=== PATIENT | male | born 1970 | race Caucasian/White ===

== ENCOUNTER 2018-05-28 19:50 | Inpatient (IN) | END 2018-06-06 20:30 | disposition home or self-care (01) | DRG 488 ==

== ENCOUNTER 2019-03-21 11:51 | Inpatient (IN) | payer OTHER ==
[2019-03-21] VITALS (30 sets, daily range): BP systolic 109–159; BP diastolic 70–98; PULSE 74–91; RESP 10–30; Ht 167.6 cm; Wt 69.0 kg
[~2019-03-21] VITALS: Ht 167.6 cm; Wt 69.0 kg
[~2019-03-21 11:51] MED LIST: INSULIN SC*; Insulin Glargine SC; METF100010 PO; SEVOFLURANE 15 MIN ONE
[2019-03-21] MEDS: DEXTROSE 5%-0.45% NACL 1,000 ML IV SCH ×2 (13:50→22:20)
--- NOTE | 2019-03-21 14:01 | PREAC ---
Date/Time of Note Date/Time of Note DATE: 03/21/19 TIME: 13:59 Anesthesia Eval and Record Evaluation Time Pre-Procedure Interview DATE: 03/21/19 TIME: 13:59 Age 48 Sex male NPO: 8 hrs Preoperative diagnosis RIGHT KNEE REPLACEMENT REVISION Planned procedure REMOVAL OF HARDWARE AND RIGHT TOTAL KNEE REVISION Past Medical History Past Medical History: Includes Cardio: HTN Endo: Diabetes Neuro: Other (HX SYNCOPAL EPISODES) Surgery & Anesthesia Issues No known issue Meds Anticoagulation: No Beta Arturo within 24 hr: No Reason Beta Arturo not given: Pt. not on B-Arturo Active Scripts Metformin Hcl* (Metformin Hcl*) 1,000 Mg Tablet, 1000 MG PO WITH BREAKFAST DINNE for 30 Days, #60 TAB 5 Refills Prov:SAKINA MONROY MD 06/06/18 [Insulin Glargine] 100 UNITS/ML SOLN No Conflict Check, 17 UNITS SC DAILY@2000 for 30 Days, 5 Refills Prov:SAKINA MONROY MD 06/06/18 Reported Medications [Insulin ] No Conflict Check, 20 UNITS SC* BID 05/28/18 Current Medications Cefazolin Sodium 50 ml @ 100 mls/hr PRE-OP ONCE IVPB ; Start 03/21/19 at 14:30; Stop 03/21/19 at 14:59 Dextrose/Sodium Chloride 1,000 ml @ 120 mls/hr Q8H20M IV Last administered on 03/21/19at 13:50; Admin Dose 120 MLS/HR; Start 03/21/19 at 14:00 Meds reviewed: Yes Allergies Coded Allergies: No Known Allergy (Unverified , 03/21/19) Allergies Reviewed: Yes Labs/Studies Labs Reviewed: Reviewed by anesthesiologist test: N/A Studies: ECG, CXR Pre-procedure Exam Airway: Adequate mouth opening, Adequate thyromental dist Mallampati: Mallampati I Teeth: Normal Lung: Normal Heart: Normal ASA Physical Status ASA physical status: 3 Emergency: None Planned Anesthetic General/MAC: LMA Neuraxial: Spinal Planned Pain Management Sub-arachniod narcotics Pre-operative Attestations Prior to commencing anesthesia and surgery, the patient was re-evaluated, there was verification of: *The patient's identity *The results of appropriate recent lab work and preoperative vital signs *The above evaluation not changing prior to induction *Anesthetic plan, risk benefits, alternative and complications discussed with patient/family; questions answered; patient/family understands, accepts and wishes to proceed. CHELSEA PACHECO Mar 21, 2019 14:01
[2019-03-21] MEDS ORDERED: morphine SULFATE/PF (10 MG/10 ML) INJ ONE (14:10)
[2019-03-21] MEDS ORDERED: TRANEXAMIC ACID 1GM/100ML(PMX) 200 ML ONE (14:14)
[2019-03-21] MEDS ORDERED: POLYMYXIN/BACITRACIN 1L IRRIG ONE (14:14)
[2019-03-21] MEDS ORDERED: ROCURONIUM 50 MG INJ ONE (14:14)
[2019-03-21] MEDS ORDERED: PROPOFOL 20 ML ONE (14:14)
[2019-03-21] MEDS ORDERED: LIDOCAINE 2% (SDV) 5 ML INJ ONE (14:14)
[2019-03-21] MEDS ORDERED: FENTAnyl 50 MCG/ML VIAL ONE (14:16)
[2019-03-21] MEDS ORDERED: MIDAZOLAM 1 MG/ML 2 ML INJ ONE (14:27)
[2019-03-21] MEDS ORDERED: CEFAZOLIN 1 GM/NS 50 ML X 1 IVPB ONE (14:30)
--- NOTE | 2019-03-21 14:41 | HPN ---
Date/Time of Note Date/Time of Note DATE: 03/21/19 TIME: 14:40 Interval H&P Admission Note Pt. seen H&P reviewed: No system changes RAISSA DIAZ MD Mar 21, 2019 14:41
--- NOTE | 2019-03-21 14:44 | OPR ---
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
[2019-03-21] MEDS ORDERED: NEOMYC/POLYMYX/BACIT 30 GM OINT ONE (14:54)
[2019-03-21] MEDS ORDERED: POLYMYXIN/BACITRACIN 1L IRRIG IRR ONE (15:10)
[2019-03-21] MEDS ORDERED: DEXAMETHASONE 4 MG/ML 5 ML INJ ONE (16:08)
[2019-03-21] MEDS ORDERED: ONDANSETRON 4 MG INJ ONE (16:09)
[2019-03-21] MEDS ORDERED: CEFAZOLIN 1 GM INJ ONE (16:09)
[2019-03-21] MEDS ORDERED: NEOSTIGMINE 3 MG/3 ML SYRINGE ONE (16:36)
[2019-03-21] MEDS ORDERED: GLYCOPYRROLATE 0.4 MG INJ ONE (16:36)
--- NOTE | 2019-03-21 16:51 | PAC ---
Date/Time of Note Date/Time of Note DATE: 03/21/19 TIME: 16:50 Post-Anesthesia Notes Post-Anesthesia Note Last documented vital signs Vital Signs Date Temp Pulse Resp B/P (MAP) Pulse Ox O2 O2 Flow FiO2 Time Delivery Rate 03/21/19 98.5 81 16 109/70 98 Room Air 1651 (83) Activity: WNL Respiratory function: WNL Cardiovascular function: WNL Mental status: Baseline Pain reasonably controlled: Yes Hydration appropriate: Yes Nausea/Vomiting absent: Yes CHELSEA PACHECO Mar 21, 2019 16:51
[2019-03-21] MEDS ORDERED: MIDAZOLAM 1 MG/ML 2 ML INJ IV PRN (17:00)
[2019-03-21] MEDS ORDERED: hydrALAzine 20 MG INJ IV PRN (17:00)
[2019-03-21] MEDS ORDERED: LABETALOL HCL 20MG INJ IV PRN (17:00)
[2019-03-21] MEDS ORDERED: METOCLOPRAMIDE 10 MG INJ IV PRN (17:00)
[2019-03-21] MEDS ORDERED: MEPERIDINE 25 MG INJ IV PRN (17:00)
[2019-03-21] MEDS ORDERED: ALBUTEROL 0.083% (NEB) 2.5 MG/3 ML AMP HHN PRN (17:00)
[2019-03-21] MEDS ORDERED: HYDROmorphONE 1 MG/5 ML IV SYRINGE IV PRN ×3 (17:00)
[2019-03-21] MEDS ORDERED: DIPHENHYDRAMINE 50 MG INJ IV PRN (17:00)
[2019-03-21] MEDS ORDERED: EPHEDrine 25 MG/5 ML SYG IV PRN (17:00)
[2019-03-21] MEDS ORDERED: FENTAnyl 50 MCG/ML VIAL IV PRN ×3 (17:00)
[2019-03-21] MEDS ORDERED: ONDANSETRON 4 MG INJ IV PRN ×2 (17:00→21:30)
[2019-03-21] MEDS ORDERED: KETOROLAC 30 MG INJ IV PRN (17:00)
[2019-03-21] MEDS ORDERED: HYDROmorphONE 0.5 MG/0.5 ML SYG IV PRN (17:30)
[2019-03-21] MEDS ORDERED: GLUCOSE GEL 15 GRAM TUBE PO PRN ×2 (18:30)
[2019-03-21] MEDS ORDERED: GLUCAGON 1 MG INJ IM PRN (18:30)
[2019-03-21] MEDS ORDERED: DEXTROSE 50% 50 ML SYRINGE IV PRN ×2 (18:30)
[2019-03-21] MEDS ORDERED: GLUCOSE GEL 15 GRAM TUBE BUCCAL PRN (18:30)
[2019-03-21] MEDS: ASPIRIN (EC) 325 MG TAB PO SCH (18:46)
[2019-03-21] MEDS: INSULIN ASPART [NOVOLOG] 3 ML PEN SC SCH ×2 (19:30→21:00)
[2019-03-21] MEDS: SOD CHLORIDE 0.9% 1,000 ML IV SCH (20:13)
[2019-03-21] MEDS: ACCU-CHEK XX SCH (21:00)
[2019-03-21] MEDS: GABAPENTIN 300 MG CAP PO SCH (21:47)
[2019-03-21] MEDS: CEFAZOLIN 1 GM/50 ML (PMX) 50 ML IVPB SCH (21:49)
--- NOTE | 2019-03-21 22:31 | OPR ---
DATE OF OPERATION: 03/21/2019 DIGITAL ADVERTISING ANALYST: Nurse practitioner. ANESTHESIA: General. PREOPERATIVE DIAGNOSIS: Severe osteoarthritis, right knee, status post medial plateau fracture with surgery with open reduction internal fixation and retained hardware. POSTOPERATIVE DIAGNOSIS: Severe osteoarthritis, right knee, status post medial plateau fracture with surgery with open reduction internal fixation and retained hardware. PROCEDURES PERFORMED: 1. Right total knee replacement arthroplasty using Jimenez and Nephew, posterior stabilized component size 6 femur Oxinium size 4 tibia, posterior stabilized, 9 mm liner, 23 mm patellar button. All comp onents cemented with antibiotic-impregnated cement. 2. Removal of hardware over the left medial plateau consisting of a buttress plate with 8 screws. ESTIMATED BLOOD LOSS: 250 mL. TOURNIQUET TIME: 50 minutes. COMPLICATIONS: None. DESCRIPTION OF PROCEDURE: The patient was taken to the operating room and general anesthetic given w ith intubation. Two grams of Kefzol was given for prophylaxis. A gram of tranexamic acid was given intravenously. The patient had a severely comminuted depressed medial tibial plateau fracture which was operated in the past by another surgeon. The x-rays show that the plateau was compressed by at least 1.5 cm with a prominent plate medially with diffuse degenerative changes involving the knee joint in all 3 oj rtments. The plan at this time is to remove the hardware and perform a knee replacement arthroplasty . The patient agreed to the procedure, understanding risks and complications which include but not l imited to loosening, infection, blood clot, neurovascular injury, stiffness, arthritis, and revision surgery. Khan catheter was inserted sterilely. Left lower extremity was prepared with a tourniquet and prepp ed and draped in usual sterile manner. Exsanguinated with an Esmarch bandage, tourniquet inflated to 300 mmHg. The previous incision was utilized, extended proximally. Arthrotomy performed medially. Plate visualized over the medial plateau and removed satisfactorily with all the hardware. No sign of infection. The wound irrigated. The femur was then prepared with intramedullary guide. The fischer lla prepared for a 23 mm button, the tibia cut with the external guide to size 4, and the femur was c ut to size 6. A trial reduction was carried out with a 9 mm liner and satisfactory range of motion n oted with full extension of the knee, flexion of 120 degrees. Knee appears stable. All bone debris and scar tissue were removed. Cement was mixed. The depressed area was compressed w ith additional cement and the component inserted satisfactorily. Stable range of motion was noted. Excess cement removed. The knee was stable in flexion and extension and medial and lateral stressing . A medial Hemovac drain placed into the knee joint. Arthrotomy closed with #2 FiberWire sutures an d #1 Vicryl suture. Subcutaneous layer closed with Vicryl suture. Rebecca applied. Compression ban dage applied. Anesthetic reversed. The patient taken to recovery room in stable condition. Dictated By: RAISSA HAMMOND/NTS Conf#: [id number] DID#: [id number] CC: MICHELLE MADRID MD;*EndCC*
[2019-03-22] MEDS: SOD CHLORIDE 0.9% 1,000 ML IV SCH ×2 (04:37→17:08)
[2019-03-22 05:00] VITALS: BP 115/77; PULSE 91; RESP 18
[2019-03-22] MEDS: CEFAZOLIN 1 GM/50 ML (PMX) 50 ML IVPB SCH ×3 (06:09→21:54)
[2019-03-22] MEDS: DEXTROSE 5%-0.45% NACL 1,000 ML IV SCH (06:40)
[2019-03-22] MEDS: ACCU-CHEK XX SCH ×4 (07:20→21:00)
[2019-03-22 07:34] VITALS: BP 102/57; PULSE 84; RESP 18
[2019-03-22] MEDS: GABAPENTIN 300 MG CAP PO SCH ×3 (08:25→19:37)
[2019-03-22] MEDS: ASPIRIN (EC) 325 MG TAB PO SCH ×2 (08:25→17:08)
[2019-03-22] MEDS: INSULIN ASPART [NOVOLOG] 3 ML PEN SC SCH ×4 (08:28→21:00)
--- NOTE | 2019-03-22 13:44 | HP ---
Date/Time of Note Date/Time of Note DATE: 03/22/19 TIME: 13:42 Assessment/Plan VTE Prophylaxis Risk score (from Ns)>0 risk: 3 SCD applied (from Ns): Yes Pharmacological prophylaxis: NA/contraindicated Pharm contraindication: surgical contra Lines/Catheters IV [facility] (from [facility]): Peripheral IV Urinary Cath still in place: Yes Reason Cath still needed: urinary retention Assessment/Plan Hospital Course 1. s/p left knee arthroplasty and metal hardware removal after ORIF of the medial aspect of the proximal tibial metaphysis 2. DM type I . Incomplete data. Pt is taking Metformin. With type I diabetes it is useless. 3. homelessness 4. dysuria. Previous lab work is positive for UTI. Pt reported weakness while urinating. Poss. BPH. 6. Normocytic normochromic anemia Assessment/Plan -prostate US -irone profile -PT /OT -c-peptide tomorrow -dc pending -hypoglycemic control -social service for homelessness -dc lina . Result Diagram: 03/22/19 1019 Results 24hrs Laboratory Tests Test 03/21/19 16:50 03/21/19 21:49 03/21/19 22:16 03/22/19 07:38 Bedside Glucose 190 157 Prothrombin Time 13.8 Prothrombin Time 1.1 Ratio INR International 1.05 Normalized Ratio Lab Scanned Report REFERENCE LAB Test 03/22/19 08:05 03/22/19 10:19 03/22/19 12:27 Bedside Glucose 201 260 H Hemoglobin 9.3 L Hematocrit 28.9 L HPI/ROS Admit Date/Time Admit Date/Time Mar 21, 2019 at 11:51 Hx of Present Illness this 48 y.o male with history of DM type I, hypertension and previous fracture of right tibia had hardware removal and right knee arthroplasty. He is first day after surgery with physical therapy. Pt is homeless. He said he also has difficu lties urinating. Pt does not know about his medical problems much, unable to provide a data. ROS Respiratory: no complaints Genitourinary: dysuria Musculoskeletal: restricted range of motion (right knee), swelling (right knee) PMH/Family/Social Past Medical History Medical History: diabetes, hypertension Medications Current Medications Dextrose/Sodium Chloride 1,000 ml @ 120 mls/hr Q8H20M IV Last administered on 03/21/19at 13:50; Admin Dose 120 MLS/HR; Start 03/21/19 at 14:00 Cefazolin Sodium 50 ml @ 100 mls/hr Q8 IVPB Last administered on 03/22/19 13:14; Admin Dose 100 MLS/HR; Start 03/21/19 at 22:00 Aspirin (Ecotrin) 325 mg BID WITH MEALS PO Last administered on 03/22/19 08:25; Admin Dose 325 MG; Start 03/21/19 at 18:00 Hydromorphone HCl (Dilaudid) 0.5 mg Q2H PRN IV SEVERE PAIN LEVEL 7-10; Start 03/21/19 at 17:30 Acetaminophen/ Hydrocodone Bitart ([place] (10/325)) 1 tab Q6H PRN PO MODERATE PAIN LEVEL 4-6; Start 03/21/19 at 17:30 Gabapentin (Neurontin) 300 mg TID PO Last administered on 03/22/19 13:13; Admin Dose 300 MG; Start 03/21/19 at 21:00 Sodium Chloride 1,000 ml @ 90 mls/hr Q11H7M IV Last administered on 03/21/19 20:13; Admin Dose 90 MLS/HR; Start 03/21/19 at 17:30 Diagnostic Test (Pha) (Accu-Chek) 1 ea AC MEALS AND BEDTIME XX Last administered on 03/22/19 11:10; Admin Dose 1 EA; Start 03/21/19 at 21:00 Insulin Aspart (Novolog Insulin Pen) NOVOLOG *MILD* ALGORITHM WITH MEALS BEDTIME SC Last administered on 03/22/19 12:39; Admin Dose 4 UNIT; Start 03/21/19 at 18:00 Miscellaneous Information 1 ea NOTE XX ; Start 03/21/19 at 18:30 Glucose (Glutose) 15 gm Q15M PRN PO DECREASED GLUCOSE; Start 03/21/19 at 18:30 Glucose (Glutose) 22.5 gm Q15M PRN PO DECREASED GLUCOSE; Start 03/21/19 at 18:30 Dextrose (D50w Syringe) 25 ml Q15M PRN IV DECREASED GLUCOSE; Start 03/21/19 at 18:30 Dextrose (D50w Syringe) 50 ml Q15M PRN IV DECREASED GLUCOSE; Start 03/21/19 at 18:30 Glucagon (Glucagen) 1 mg Q15M PRN IM DECREASED GLUCOSE; Start 03/21/19 at 18:30 Glucose (Glutose) 15 gm Q15M PRN BUCCAL DECREASED GLUCOSE; Start 03/21/19 at 18:30 Ondansetron HCl (Zofran Inj) 4 mg Q6H PRN IV NAUSEA AND/OR VOMITING Last ad ministered on 03/21/19at 22:03; Admin Dose 4 MG; Start 03/21/19 at 21:30 Coded Allergies: No Known Allergy (Unverified , 03/21/19) Past Surgical History Past Surgical Hx: other (ORIF 2018) Family History Significant Family History: no pertinent family hx Social History Alcohol Use: none Smoking Status: Never smoker Drug Use: none Exam/Review of Systems Vital Signs Vitals Vital Signs Date Temp Pulse Resp B/P (MAP) Pulse Ox O2 O2 Flow FiO2 Time Delivery Rate 03/22/19 97.2 84 18 102/57 94 07:34 (72) 03/21/19 Room Air 21:00 Intake and Output 03/21/19 03/21/19 03/22/19 1515:00 23:00 07:00 IntakeIntake Total 2000 ml 410 ml 950 ml OutputOutput Total 420 ml 970 ml BalanceBalance 2000 ml -10 ml -20 ml Exam Constitutional: alert, oriented Head: normocephalic Eyes: nl conjunctiva Respiratory: clear to auscultation Cardiovascular: regular rate and rhythm Gastrointestinal: soft Genitourinary - Male: other (mills) Musculoskeletal: swelling (right knee) GRIFFIN NAVARRETE Mar 22, 2019 13:43
[2019-03-22 15:08] VITALS: BP 129/76; PULSE 96; RESP 18
[2019-03-22 19:35] VITALS: BP 116/58; PULSE 112; RESP 18
[2019-03-22] MEDS: HYDROCODONE/APAP (10/325) TAB PO PRN (19:37)
[2019-03-22 20:30] VITALS: BP 118/63; PULSE 92
[2019-03-23] MEDS: HYDROCODONE/APAP (10/325) TAB PO PRN ×2 (02:02→08:27)
[2019-03-23 02:30] VITALS: BP_SYST 121; BP_SYST 94; BP_DIAS 53; BP_DIAS 68; PULSE 86; PULSE 98; RESP 20
[2019-03-23] MEDS: CEFAZOLIN 1 GM/50 ML (PMX) 50 ML IVPB SCH ×3 (05:35→21:43)
[2019-03-23 08:02] VITALS: BP_SYST 121; BP_SYST 149; BP_DIAS 57; BP_DIAS 72; PULSE 94; RESP 20
[2019-03-23] MEDS: AMLODIPINE 5 MG TAB PO SCH (08:29)
[2019-03-23] MEDS: ACCU-CHEK XX SCH ×4 (08:30→21:00)
[2019-03-23] MEDS: GABAPENTIN 300 MG CAP PO SCH ×3 (08:30→21:43)
[2019-03-23] MEDS: INSULIN ASPART [NOVOLOG] 3 ML PEN SC SCH ×4 (08:34→21:48)
[2019-03-23] MEDS: ASPIRIN (EC) 325 MG TAB PO SCH ×2 (10:02→17:24)
[2019-03-23] MEDS ORDERED: FINASTERIDE 5 MG TAB PO SCH (11:00)
[2019-03-23] MEDS: CALCIUM CARBONATE 1.25 GM TAB PO SCH ×2 (11:50→21:43)
[2019-03-23] MEDS: LEVOFLOXACIN 500MG/D5W (PMX) 100 ML IVPB SCH (11:50)
--- NOTE | 2019-03-23 12:42 | PN ---
Date/Time of Note Date/Time of Note DATE: 03/23/19 TIME: 12:37 Assessment/Plan VTE Prophylaxis Risk score (from Ns)>0 risk: 4 SCD applied (from [facility]): Yes SCD contraindicated: other Pharmacological prophylaxis: NA/contraindicated Pharm contraindication: surgical contra Lines/Catheters IV C[facility]ter Type ([facility] Peripheral IV Urinary Cath still in place: No Assessment/Plan Hospital Course 1. s/p left knee arthroplasty and metal hardware removal after ORIF of the medial aspect of the proximal tibial metaphysis 2. DM type I or II? Incomplete data. Pt was taking Metformin but said it is not helping him. With type I diabetes it is useless. Per previous record pt has DM type I. C -peptide is pending. It is uncontrolled 3. homelessness. Pt has friend and address Unclear how Physical therapy will be given. Also pt has a wound on right knee 4. UTI with dysuria. Previous lab work is positive for UTI. Pt reported weakness while urinating. 6. Normocytic normochromic iron def.anemia 7. Proteinuria, more likely to 2.2 UTI 8. Hypocalcemia Assessment/Plan -prostate US is normal -iron profile is low -calcium tabs BID for Hypocalcemia -start Levaquin for UTI. 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 Consider PT -hypoglycemic control -social service for homelessness Result Diagram: 03/23/19 0424 03/23/194 Results 24hrs Laboratory Tests Test 03/22/19 17:10 03/22/19 18:23 03/22/19 20:55 03/23/19 01:57 Urine Color JEFF Urine Clarity TURBID A Urine pH 5.0 Urine Specific [place] 1.020 Urine Ketones NEGATIVE Urine Nitrite NEGATIVE Urine Bilirubin NEGATIVE Urine Urobilinogen NEGATIVE Urine Leukocyte Esterase 3+ H Urine Microscopic RBC 49 H Urine Microscopic WBC > 182 H Urine Bacteria FEW A Urine Hemoglobin 2+ H Urine Glucose 2+ H Urine Total Protein 2+ H Bedside Glucose 380 H 324 H 197 Test 03/23/19 04:24 03/23/19 08:26 White Blood Count 5.3 # Red Blood Count 2.79 L Hemoglobin 8.0 L Hematocrit 25.1 L Mean Corpuscular Volume 90.0 Mean Corpuscular 28.7 L Hemoglobin Mean Corpuscular 31.9 L Hemoglobin Concent Red Cell Distribution 13.3 Width Platelet Count 167 # Mean Platelet Volume 10.3 Immature Granulocytes % 0.400 Neutrophils % 59.6 Lymphocytes % 24.3 Monocytes % 12.3 H Eosinophils % 2.3 Basophils % 1.1 Nucleated Red Blood 0.0 Cells % Immature Granulocytes # 0.020 Neutrophils # 3.1 Lymphocytes # 1.3 Monocytes # 0.7 Eosinophils # 0.1 Basophils # 0.1 Nucleated Red Blood 0.0 Cells # Sodium Level 134 L Potassium Level 4.5 Chloride Level 105 Carbon Dioxide Level 26 Anion Gap 3 L Blood Urea Nitrogen 28 H Creatinine 1.15 Est Glomerular Filtrat > 60 Rate mL/min Glucose Level 205 Hemoglobin A1c 9.9 H Calcium Level 7.7 L Iron Level 24 L Total Iron Binding 237 L Capacity Percent Iron Saturation 10 L Total Bilirubin 0.5 Direct Bilirubin 0.00 Indirect Bilirubin 0.5 Aspartate Amino 27 Transf (AST/SGOT) Alanine 26 Aminotransferase (ALT/SG PT) Alkaline Phosphatase 83 Total Protein 5.2 L Albumin 2.7 L Globulin 2.50 Albumin/Globulin Ratio 1.08 Prostate Specific 2.9 Antigen Bedside Glucose 190 Subjective 24 Hr Interval Summary Free Text/Dictation erectile dysfunction. Respiratory: no complaints Musculoskeletal: restricted range of motion (right knee) Skin: skin lesions (surgical) Exam/Review of Systems Exam Vitals Vital Signs Date Temp Pulse Resp B/P (MAP) Pulse Ox O2 O2 Flow FiO2 Time Delivery Rate 03/23/19 99.0 94 20 121/57 95 Room Air 08:02 (78) Intake and Output 03/22/19 03/22/19 03/23/19 1515:00 23:00 07:00 IntakeIntake Total 50 ml 770 ml 1020 ml OutputOutput Total 420 ml 220 ml 1020 ml BalanceBalance -370 ml 550 ml 0 ml Constitutional: alert, oriented Neck: supple Respiratory: clear to auscultation Cardiovascular: regular rate and rhythm Gastrointestinal: soft Genitourinary - Male: CVA tenderness; No nl penis, No nl scrotum, No discharge, No other Extremities: edema (right knee with surgical wound) Results Results 24hrs Laboratory Tests Test 03/22/19 17:10 03/22/19 18:23 03/22/19 20:55 03/23/19 01:57 Urine Color JEFF Urine Clarity TURBID A Urine pH 5.0 Urine Specific [place] 1.020 Urine Ketones NEGATIVE Urine Nitrite NEGATIVE Urine Bilirubin NEGATIVE Urine Urobilinogen NEGATIVE Urine Leukocyte Esterase 3+ H Urine Microscopic RBC 49 H Urine Microscopic WBC > 182 H Urine Bacteria FEW A Urine Hemoglobin 2+ H Urine Glucose 2+ H Urine Total Protein 2+ H Bedside Glucose 380 H 324 H 197 Test 03/23/19 04:24 03/23/19 08:26 White Blood Count 5.3 # Red Blood Count 2.79 L Hemoglobin 8.0 L Hematocrit 25.1 L Mean Corpuscular Volume 90.0 Mean Corpuscular 28.7 L Hemoglobin Mean Corpuscular 31.9 L Hemoglobin Concent Red Cell Distribution 13.3 Width Platelet Count 167 # Mean Platelet Volume 10.3 Immature Granulocytes % 0.400 Neutrophils % 59.6 Lymphocytes % 24.3 Monocytes % 12.3 H Eosinophils % 2.3 Basophils % 1.1 Nucleated Red Blood 0.0 Cells % Immature Granulocytes # 0.020 Neutrophils # 3.1 Lymphocytes # 1.3 Monocytes # 0.7 Eosinophils # 0.1 Basophils # 0.1 Nucleated Red Blood 0.0 Cells # Sodium Level 134 L Potassium Level 4.5 Chloride Level 105 Carbon Dioxide Level 26 Anion Gap 3 L Blood Urea Nitrogen 28 H Creatinine 1.15 Est Glomerular Filtrat > 60 Rate mL/min Glucose Level 205 Hemoglobin A1c 9.9 H Calcium Level 7.7 L Iron Level 24 L Total Iron Binding 237 L Capacity Percent Iron Saturation 10 L Total Bilirubin 0.5 Direct Bilirubin 0.00 Indirect Bilirubin 0.5 Aspartate Amino 27 Transf (AST/SGOT) Alanine 26 Aminotransferase (ALT/SG PT) Alkaline Phosphatase 83 Total Protein 5.2 L Albumin 2.7 L Globulin 2.50 Albumin/Globulin Ratio 1.08 Prostate Specific 2.9 Antigen Bedside Glucose 190 Medications Medication Current Medications Cefazolin Sodium 50 ml @ 100 mls/hr Q8 IVPB Last administered on 03/23/19at 05:35; Admin Dose 100 MLS/HR; Start 03/21/19 at 22:00 Aspirin (Ecotrin) 325 mg BID WITH MEALS PO Last administered on 03/23/19at 10:02; Admin Dose 325 MG; Start 03/21/19 at 18:00 Hydromorphone HCl (Dilaudid) 0.5 mg Q2H PRN IV SEVERE PAIN LEVEL 7-10; Start 03/21/19 at 17:30 Acetaminophen/ Hydrocodone Bitart ([place] ()) 1 tab Q6H PRN PO MODERATE PAIN LEVEL 4-6 Last administered on 03/23/19 08:27; Admin Dose 1 TAB; Start 03/21/19 at 17:30 Gabapentin (Neurontin) 300 mg TID PO Last administered on 03/23/19 08:30; Admin Dose 300 MG; Start 03/21/19 at 21:00 Sodium Chloride 1,000 ml @ 30 mls/hr Q24H IV Last administered on 03/22/19 17:08; Admin Dose 30 MLS/HR; Start 03/21/19 at 17:30 Diagnostic Test (Pha) (Accu-Chek) 1 ea AC MEALS AND BEDTIME XX Last administered on 03/22/19 17:25; Admin Dose 1 EA; Start 03/21/19 at 21:00 Insulin Aspart (Novolog Insulin Pen) NOVOLOG *MILD* ALGORITHM WITH MEALS BEDTIME SC Last administered on 03/23/19 08:34; Admin Dose 2 UNIT; Start 03/21/19 at 18:00 Miscellaneous Information 1 ea NOTE XX ; Start 03/21/19 at 18:30 Glucose (Glutose) 15 gm Q15M PRN PO DECREASED GLUCOSE; Start 03/21/19 at 18:30 Glucose (Glutose) 22.5 gm Q15M PRN PO DECREASED GLUCOSE; Start 03/21/19 at 18:30 Dextrose (D50w Syringe) 25 ml Q15M PRN IV DECREASED GLUCOSE; Start 03/21/19 at 18:30 Dextrose (D50w Syringe) 50 ml Q15M PRN IV DECREASED GLUCOSE; Start 03/21/19 at 18:30 Glucagon (Glucagen) 1 mg Q15M PRN IM DECREASED GLUCOSE; Start 03/21/19 at 18:30 Glucose (Glutose) 15 gm Q15M PRN BUCCAL DECREASED GLUCOSE; Start 03/21/19 at 18:30 Ondansetron HCl (Zofran Inj) 4 mg Q6H PRN IV NAUSEA AND/OR VOMITING Last administered on 03/21/19 22:03; Admin Dose 4 MG; Start 03/21/19 at 21:30 Amlodipine Besylate (Norvasc) 5 mg DAILY PO Last administered on 6/9/19at 08:29; Admin Dose 5 MG; Start 03/23/19 at 09:00 Insulin Aspart (Novolog Insulin Pen) 7 unit AC MEALS PRN SC BLOOD SUGAR IS ABOVE 250; Start 03/23/19 at 07:20 Ferric Sodium Gluconate Complex 125 mg/Sodium Chloride 100 ml @ 100 mls/hr DAILY@1300 IVPB ; Start 03/23/19 at 13:00; Stop 03/25/19 at 13:59 Finasteride (Proscar) 5 mg DAILY PO Last administered on 03/23/19at 11:50; Admin Dose 5 MG; Start 03/23/19 at 11:00 Levofloxacin/ Dextrose 100 ml @ 100 mls/hr Q24H IVPB Last administered on 03/23/19 11:50; Admin Dose 100 MLS/HR; Start 03/23/19 at 11:00 Calcium Carbonate ([place] Calcium) 1.25 gm BID PO Last administered on 03/23/19 11:50; Admin Dose 1.25 GM; Start 03/23/19 at 11:00 GRIFFIN NAVARRETE Mar 23, 2019 12:42
[2019-03-23] MEDS: INSULIN ASPART [NOVOLOG] 3 ML PEN SC PRN (13:09)
[2019-03-23] MEDS: SOD FERRIC GLUC COMPLX 125 MG in SOD CHLORIDE 0.9% 100 ML IVPB SCH (13:10)
[2019-03-23 15:29] VITALS: BP 103/55; PULSE 97; RESP 20
[2019-03-23 19:55] VITALS: BP 119/64; PULSE 118; RESP 18
[2019-03-23] MEDS: INSULIN GLARGINE [LANTus] (100 UNITS/ML) SYG SC SCH (21:49)
[2019-03-23 22:00] VITALS: BP 137/69; PULSE 117
[2019-03-23] MEDS ORDERED: CEFTRIAXONE 1 GM/50 ML (PMX) 50 ML IVPB SCH (23:00)
[2019-03-23] MEDS: ACETAMINOPHEN 325 MG TAB PO PRN (23:21)
[2019-03-24] MEDS: SOD CHLORIDE 0.9% 1,000 ML IV SCH (02:14)
[2019-03-24 02:41] VITALS: BP 121/69; PULSE 99; RESP 18
[2019-03-24] MEDS: ACETAMINOPHEN 325 MG TAB PO PRN (05:43)
[2019-03-24] MEDS: CEFAZOLIN 1 GM/50 ML (PMX) 50 ML IVPB SCH (05:46)
[2019-03-24 07:27] VITALS: BP 101/64; PULSE 82; RESP 18
[2019-03-24] MEDS: ACCU-CHEK XX SCH ×4 (08:20→21:00)
[2019-03-24] MEDS: CALCIUM CARBONATE 1.25 GM TAB PO SCH ×2 (08:33→20:54)
[2019-03-24] MEDS: GABAPENTIN 300 MG CAP PO SCH ×3 (08:34→20:54)
[2019-03-24] MEDS: AMLODIPINE 5 MG TAB PO SCH (08:34)
[2019-03-24] MEDS: ASPIRIN (EC) 325 MG TAB PO SCH (08:34)
[2019-03-24] MEDS: INSULIN ASPART [NOVOLOG] 3 ML PEN SC SCH ×4 (08:37→21:17)
[2019-03-24] MEDS: LEVOFLOXACIN 500MG/D5W (PMX) 100 ML IVPB SCH (11:07)
--- NOTE | 2019-03-24 12:21 | PN ---
Date/Time of Note Date/Time of Note DATE: 03/24/19 TIME: 12:21 Assessment/Plan VTE Prophylaxis Risk score (from Ns)>0 risk: 7 SCD applied (from Ns): Yes Pharmacological prophylaxis: NA/contraindicated Pharm contraindication: low risk/ambulating Lines/Catheters IV Catheter Type (from Nrs): Peripheral IV Urinary Cath still in place: No Assessment/Plan Assessment/Plan 1. s/p left knee arthroplasty and metal hardware removal after ORIF of the medial aspect of the proximal tibial metaphysis 2. DM type I or II? Incomplete data. Pt was taking Metformin but said it is not helping him. With type I diabetes it is useless. Per previous record pt has DM type I. C -peptide is pending. It is uncontrolled 3. homelessness. Pt has friend and address Unclear how Physical therapy will be given. Also pt has a wound on right knee 4. UTI with dysuria. Previous lab work is positive for UTI. Pt reported weakness while urinating. 6. Normocytic normochromic iron def.anemia 7. Proteinuria, more likely to 2.2 UTI 8. Hypocalcemia 9 Anemia with acute blood loss?? Assessment/Plan - cw levaquin -We will check with Ortho if it is okay to continue with aspirin and anemia -pain contol -Monitor hemoglobin, on ASA 325 BID -SNIF vs ARU - CW iv Fe -hypoglycemic control -social service for homelessness Result Diagram: 03/24/19 0432 03/24/19 0432 Results 24hrs Laboratory Tests Test 03/23/19 13:05 03/23/19 17:22 03/23/19 21:41 03/24/19 04:32 Bedside Glucose 267 H 107 186 White Blood Count 5.3 Red Blood Count 2.53 L Hemoglobin 7.2 L Hematocrit 22.5 L Mean Corpuscular 88.9 Volume Mean Corpuscular 28.5 L Hemoglobin Mean Corpuscular 32.0 Hemoglobin Concent Red Cell Distribution 13.5 Width Platelet Count 159 Mean Platelet Volume 10.5 H Immature Granulocytes 0.400 % Neutrophils % 53.4 Lymphocytes % 30.7 Monocytes % 12.1 H Eosinophils % 1.9 Basophils % 1.5 Nucleated Red Blood 0.0 Cells % Immature Granulocytes 0.020 # Neutrophils # 2.8 Lymphocytes # 1.6 Monocytes # 0.6 Eosinophils # 0.1 Basophils # 0.1 Nucleated Red Blood 0.0 Cells # Sodium Level 135 Potassium Level 4.2 Chloride Level 105 Carbon Dioxide Level 25 Anion Gap 5 Blood Urea Nitrogen 30 H Creatinine 1.20 Est Glomerular Filtrat > 60 Rate mL/min Glucose Level 202 Calcium Level 8.0 L Test 03/24/19 08:27 Bedside Glucose 172 Subjective 24 Hr Interval Summary Free Text/Dictation he was ambulating with physical therapy. Hemoglobin 7.2 today Exam/Review of Systems Exam Vitals Vital Signs Date Temp Pulse Resp B/P (MAP) Pulse Ox O2 O2 Flow FiO2 Time Delivery Rate 03/24/19 98.3 82 18 101/64 99 Room Air 07:27 (76) Intake and Output 03/23/19 03/23/19 03/24/19 1515:00 23:00 07:00 IntakeIntake Total 1050 ml 710 ml 950 ml OutputOutput Total 950 ml 200 ml 400 ml BalanceBalance 100 ml 510 ml 550 ml Exam Constitutional: alert, oriented Neck: supple Respiratory: clear to auscultation Cardiovascular: regular rate and rhythm Gastrointestinal: soft Genitourinary - Male: CVA tenderness; No nl penis, No nl scrotum, No discharge, No other Extremities: edema (right knee with surgical wound) Results Results 24hrs Laboratory Tests Test 03/23/19 13:05 03/23/19 17:22 03/23/19 21:41 03/24/19 04:32 Bedside Glucose 267 H 107 186 White Blood Count 5.3 Red Blood Count 2.53 L Hemoglobin 7.2 L Hematocrit 22.5 L Mean Corpuscular 88.9 Volume Mean Corpuscular 28.5 L Hemoglobin Mean Corpuscular 32.0 Hemoglobin Concent Red Cell Distribution 13.5 Width Platelet Count 159 Mean Platelet Volume 10.5 H Immature Granulocytes 0.400 % Neutrophils % 53.4 Lymphocytes % 30.7 Monocytes % 12.1 H Eosinophils % 1.9 Basophils % 1.5 Nucleated Red Blood 0.0 Cells % Immature Granulocytes 0.020 # Neutrophils # 2.8 Lymphocytes # 1.6 Monocytes # 0.6 Eosinophils # 0.1 Basophils # 0.1 Nucleated Red Blood 0.0 Cells # Sodium Level 135 Potassium Level 4.2 Chloride Level 105 Carbon Dioxide Level 25 Anion Gap 5 Blood Urea Nitrogen 30 H Creatinine 1.20 Est Glomerular Filtrat > 60 Rate mL/min Glucose Level 202 Calcium Level 8.0 L Test 03/24/19 08:27 Bedside Glucose 172 Medications Medication Current Medications Cefazolin Sodium 50 ml @ 100 mls/hr Q8 IVPB Last administered on 03/24/19 05:46; Admin Dose 100 MLS/HR; Start 03/21/19 at 22:00 Aspirin (Ecotrin) 325 mg BID WITH MEALS PO Last administered on 03/24/19 08:34; Admin Dose 325 MG; Start 03/21/19 at 18:00 Hydromorphone HCl (Dilaudid) 0.5 mg Q2H PRN IV SEVERE PAIN LEVEL 7-10; Start 03/21/19 at 17:30 Acetaminophen/ Hydrocodone Bitart ([place] (10)) 1 tab Q6H PRN PO MODERATE PAIN LEVEL 4-6 Last administered on 03/23/19 08:27; Admin Dose 1 TAB; Start 03/21/19 at 17:30 Gabapentin (Neurontin) 300 mg TID PO Last administered on 03/24/19 08:34; Admin Dose 300 MG; Start 03/21/19 at 21:00 Sodium Chloride 1,000 ml @ 30 mls/hr Q24H IV Last administered on 03/24/19 02:14; Admin Dose 30 MLS/HR; Start 03/21/19 at 17:30 Diagnostic Test (Pha) (Accu-Chek) 1 ea AC MEALS AND BEDTIME XX Last adminis tered on 03/22/19 17:25; Admin Dose 1 EA; Start 03/21/19 at 21:00 Insulin Aspart (Novolog Insulin Pen) NOVOLOG *MILD* ALGORITHM WITH MEALS BEDTIME SC Last administered on 03/24/19 08:37; Admin Dose 1 UNIT; Start 03/21/19 at 18:00 Miscellaneous Information 1 ea NOTE XX ; Start 03/21/19 at 18:30 Glucose (Glutose) 15 gm Q15M PRN PO DECREASED GLUCOSE; Start 03/21/19 at 18:30 Glucose (Glutose) 22.5 gm Q15M PRN PO DECREASED GLUCOSE; Start 03/21/19 at 18:30 Dextrose (D50w Syringe) 25 ml Q15M PRN IV DECREASED GLUCOSE; Start 03/21/19 at 18:30 Dextrose (D50w Syringe) 50 ml Q15M PRN IV DECREASED GLUCOSE; Start 03/21/19 at 18:30 Glucagon (Glucagen) 1 mg Q15M PRN IM DECREASED GLUCOSE; Start 03/21/19 at 18:30 Glucose (Glutose) 15 gm Q15M PRN BUCCAL DECREASED GLUCOSE; Start 03/21/19 at 18:30 Ondansetron HCl (Zofran Inj) 4 mg Q6H PRN IV NAUSEA AND/OR VOMITING Last administered on 03/21/19 22:03; Admin Dose 4 MG; Start 03/21/19 at 21:30 Amlodipine Besylate (Norvasc) 5 mg DAILY PO Last administered on 03/24/19 08:34; Admin Dose 5 MG; Start 03/23/19 at 09:00 Insulin Aspart (Novolog Insulin Pen) 7 unit AC MEALS PRN SC BLOOD SUGAR IS ABOVE 250 Last administered on 03/23/19 13:09; Admin Dose 7 UNIT; Start 03/23/19 at 07:20 Ferric Sodium Gluconate Complex 125 mg/Sodium Chloride 100 ml @ 100 mls/hr DA EDNA@1300 IVPB Last administered on 03/23/19 13:10; Admin Dose 100 MLS/HR; Start 03/23/19 at 13:00; Stop 03/25/19 at 13:59 Levofloxacin/ Dextrose 100 ml @ 100 mls/hr Q24H IVPB Last administered on 11:07; Admin Dose 100 MLS/HR; Start 03/23/19 at 11:00 Calcium Carbonate (Oyster Shell Calcium) 1.25 gm BID PO Last administered on 03/24/19 08:33; Admin Dose 1.25 GM; Start 03/23/19 at 11:00 Insulin Glargine (Lantus) 8 units QHS SC Last administered on 03/23/19 21:49; Admin Dose 8 UNITS; Start 03/23/19 at 21:00 Acetaminophen (Tylenol Tab) 650 mg Q6H PRN PO MILD PAIN(1-3)OR ELEVATED TEMP L ast administered on 03/24/19 05:43; Admin Dose 650 MG; Start 03/23/19 at 22:20 ALCIRA CORDON MD Mar 24, 2019 12:21
[2019-03-24] MEDS: SOD FERRIC GLUC COMPLX 125 MG in SOD CHLORIDE 0.9% 100 ML IVPB SCH (13:00)
[2019-03-24] MEDS: INSULIN ASPART [NOVOLOG] 3 ML PEN SC PRN (13:03)
[2019-03-24 15:14] VITALS: BP 95/52; PULSE 86
[2019-03-24 19:50] VITALS: BP 129/80; PULSE 96; RESP 18
[2019-03-24] MEDS: INSULIN GLARGINE [LANTus] (100 UNITS/ML) SYG SC SCH (20:57)
[2019-03-25 02:07] VITALS: BP 106/59; PULSE 92; RESP 18
[2019-03-25] MEDS: ACETAMINOPHEN 325 MG TAB PO PRN (04:58)
[2019-03-25] MEDS: ACCU-CHEK XX SCH ×4 (07:20→21:15)
[2019-03-25 08:36] VITALS: BP 111/60; PULSE 79; RESP 18
[2019-03-25] MEDS: AMLODIPINE 5 MG TAB PO SCH (08:45)
[2019-03-25] MEDS: ASPIRIN (EC) 325 MG TAB PO SCH (08:46)
[2019-03-25] MEDS: CALCIUM CARBONATE 1.25 GM TAB PO SCH ×2 (08:46→21:15)
[2019-03-25] MEDS: GABAPENTIN 300 MG CAP PO SCH ×3 (08:46→21:15)
[2019-03-25] MEDS: INSULIN ASPART [NOVOLOG] 3 ML PEN SC SCH ×5 (08:48→21:00)
[2019-03-25] MEDS: LEVOFLOXACIN 500MG/D5W (PMX) 100 ML IVPB SCH (11:25)
[2019-03-25] MEDS: INSULIN ASPART [NOVOLOG] 3 ML PEN SC PRN (12:54)
[2019-03-25] MEDS: SOD FERRIC GLUC COMPLX 125 MG in SOD CHLORIDE 0.9% 100 ML IVPB SCH (12:55)
[2019-03-25 15:33] VITALS: BP 103/60; PULSE 83; RESP 18
--- NOTE | 2019-03-25 15:54 | PN ---
Date/Time of Note Date/Time of Note DATE: 03/25/19 TIME: 15:51 Assessment/Plan VTE Prophylaxis Risk score (from Ns)>0 risk: 6 SCD applied (from Nsg): Yes Pharmacological prophylaxis: NA/contraindicated Pharm contraindication: low risk/ambulating Lines/Catheters IV Catheter Type (from Nrsg): Saline Lock Urinary Cath still in place: No Assessment/Plan Assessment/Plan ssessment/Plan 1. s/p left knee arthroplasty and metal hardware removal after ORIF of the media l aspect of the proximal tibial metaphysis 2. DM type I or II? Incomplete data. Pt was taking Metformin but said it is not helping him. With type I diabetes it is useless. Per previous record pt has DM type I. C -peptide is pending. It is uncontrolled 3. homelessness. Pt has friend and address Unclear how Physical therapy will be given. Also pt has a wound on right knee 4. UTI with dysuria. Previous lab work is positive for UTI. Pt reported weakness while urinating. 6. Normocytic normochromic iron def.anemia 7. Proteinuria, more likely to 2.2 UTI 8. Hypocalcemia 9 Anemia with acute blood loss?? 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 SNIF> spoke to stephenie Gutierrez medically cleared Result Diagram: 03/25/19 0428 03/24/19 0432 Results 24hrs Laboratory Tests Test 03/24/19 17:41 03/24/19 20:50 03/25/19 04:28 03/25/19 08:43 Bedside Glucose 219 334 H 224 H White Blood Count 4.6 L Red Blood Count 2.52 L Hemoglobin 7.3 L Hematocrit 22.6 L Mean Corpuscular 89.7 Volume Mean Corpuscular 29.0 Hemoglobin Mean Corpuscular 32.3 Hemoglobin Concent Red Cell 13.5 Distribution Width Platelet Count 176 Mean Platelet Volume 10.4 Immature 0.400 Granulocytes % Neutrophils % 58.8 Lymphocytes % 25.2 Monocytes % 11.7 H Eosinophils % 3.0 Basophils % 0.9 Nucleated Red Blood 0.0 Cells % Immature 0.020 Granulocytes # Neutrophils # 2.7 Lymphocytes # 1.2 Monocytes # 0.5 Eosinophils # 0.1 Basophils # 0.0 Nucleated Red Blood 0.0 Cells # Test 03/25/19 12:46 Bedside Glucose 319 H Subjective 24 Hr Interval Summary Free Text/Dictation Hemoglobin 7.3 today. 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 Exam/Review of Systems Exam Vitals Vital Signs Date Temp Pulse Resp B/P (MAP) Pulse Ox O2 O2 Flow FiO2 Time Delivery Rate 03/25/19 98.9 79 18 111/60 98 Room Air 08:36 (77) Intake and Output 03/24/19 03/24/19 03/25/19 1515:00 23:00 07:00 IntakeIntake Total 400 ml 2120 ml 400 ml OutputOutput Total 1300 ml 500 ml BalanceBalance 400 ml 820 ml -100 ml Exam Constitutional: alert, oriented Neck: supple Respiratory: clear to auscultation Cardiovascular: regular rate and rhythm Gastrointestinal: soft Genitourinary - Male: CVA tenderness; No nl penis, No nl scrotum, No discharge, No other Extremities: edema (right knee with surgical wound) Results Results 24hrs Laboratory Tests Test 03/24/19 17:41 03/24/19 20:50 03/25/19 04:28 03/25/19 08:43 Bedside Glucose 219 334 H 224 H White Blood Count 4.6 L Red Blood Count 2.52 L Hemoglobin 7.3 L Hematocrit 22.6 L Mean Corpuscular 89.7 Volume Mean Corpuscular 29.0 Hemoglobin Mean Corpuscular 32.3 Hemoglobin Concent Red Cell 13.5 Distribution Width Platelet Count 176 Mean Platelet Volume 10.4 Immature 0.400 Granulocytes % Neutrophils % 58.8 Lymphocytes % 25.2 Monocytes % 11.7 H Eosinophils % 3.0 Basophils % 0.9 Nucleated Red Blood 0.0 Cells % Immature 0.020 Granulocytes # Neutrophils # 2.7 Lymphocytes # 1.2 Monocytes # 0.5 Eosinophils # 0.1 Basophils # 0.0 Nucleated Red Blood 0.0 Cells # Test 03/25/19 12:46 Bedside Glucose 319 H Medications Medication Current Medications Hydromorphone HCl (Dilaudid) 0.5 mg Q2H PRN IV SEVERE PAIN LEVEL 7-10; Start 03/21/19 at 17:30 Acetaminophen/ Hydrocodone Bitart ([place] ()) 1 tab Q6H PRN PO MODERATE PAIN LEVEL 4-6 Last administered on 03/23/19 08:27; Admin Dose 1 TAB; Start 03/21/19 at 17:30 Gabapentin (Neurontin) 300 mg TID PO Last administered on 03/25/19 12:55; Admin Dose 300 MG; Start 03/21/19 at 21:00 Diagnostic Test (Pha) (Accu-Chek) 1 ea AC MEALS AND BEDTIME XX Last administered on 03/22/19 17:25; Admin Dose 1 EA; Start 03/21/19 at 21:00 Insulin Aspart (Novolog Insulin Pen) NOVOLOG *MILD* ALGORITHM WITH MEALS BEDTIME SC Last administered on 03/25/19 12:53; Admin Dose 5 UNIT; Start 03/21/19 at 18:00 Miscellaneous Information 1 ea NOTE XX ; Start 03/21/19 at 18:30 Glucose (Glutose) 15 gm Q15M PRN PO DECREASED GLUCOSE; Start 03/21/19 at 18:30 Glucose (Glutose) 22.5 gm Q15M PRN PO DECREASED GLUCOSE; Start 03/21/19 at 18:30 Dextrose (D50w Syringe) 25 ml Q15M PRN IV DECREASED GLUCOSE; Start 03/21/19 at 18:30 Dextrose (D50w Syringe) 50 ml Q15M PRN IV DECREASED GLUCOSE; Start 03/21/19 at 18:30 Glucagon (Glucagen) 1 mg Q15M PRN IM DECREASED GLUCOSE; Start 03/21/19 at 18:30 Glucose (Glutose) 15 gm Q15M PRN BUCCAL DECREASED GLUCOSE; Start 03/21/19 at 18:30 Ondansetron HCl (Zofran Inj) 4 mg Q6H PRN IV NAUSEA AND/OR VOMITING Last administered on 03/21/19 22:03; Admin Dose 4 MG; Start 03/21/19 at 21:30 Amlodipine Besylate (Norvasc) 5 mg DAILY PO Last administered on 03/24/19 08:34; Admin Dose 5 MG; Start 03/23/19 at 09:00 Insulin Aspart (Novolog Insulin Pen) 7 unit AC MEALS PRN SC BLOOD SUGAR IS ABOVE 250 Last administered on 03/25/19 12:54; Admin Dose 7 UNIT; Start 03/23/19 at 07:20 Levofloxacin/ Dextrose 100 ml @ 100 mls/hr Q24H IVPB Last administered on 03/25/19 11:25; Admin Dose 100 MLS/HR; Start 03/23/19 at 11:00 Calcium Carbonate (Oyster Shell Calcium) 1.25 gm BID PO Last administered on 03/25/19 08:46; Admin Dose 1.25 GM; Start 03/23/19 at 11:00 Acetaminophen (Tylenol Tab) 650 mg Q6H PRN PO MILD PAIN(1-3)OR ELEVATED TEMP Last administered on 03/25/19at 04:58; Admin Dose 650 MG; Start 03/23/19 at 22:20 Aspirin (Ecotrin) 325 mg DAILY PO Last administered on 03/25/19 08:46; Admin Dose 325 MG; Start 03/25/19 at 09:00 Insulin Glargine (Lantus) 15 units QHS SC ; Start 03/25/19 at 21:00; Status UNALCIRA CHAVEZ MD Mar 25, 2019 15:54
[2019-03-25 19:40] VITALS: BP 112/67; PULSE 82; RESP 18
[2019-03-25] MEDS: INSULIN GLARGINE [LANTus] (100 UNITS/ML) SYG SC SCH (21:16)
[2019-03-26] MEDS: ACCU-CHEK XX SCH ×6 (01:41→21:07)
[2019-03-26 02:28] VITALS: BP 113/58; PULSE 60; RESP 18
[2019-03-26 07:29] VITALS: BP 132/81; PULSE 89; RESP 18
[2019-03-26] MEDS: GABAPENTIN 300 MG CAP PO SCH ×3 (08:43→20:54)
[2019-03-26] MEDS: ASPIRIN (EC) 325 MG TAB PO SCH (08:43)
[2019-03-26] MEDS: CALCIUM CARBONATE 1.25 GM TAB PO SCH ×2 (08:43→20:54)
[2019-03-26] MEDS: INSULIN ASPART [NOVOLOG] 3 ML PEN SC SCH ×9 (08:44→21:05)
[2019-03-26] MEDS: AMLODIPINE 5 MG TAB PO SCH (08:44)
[2019-03-26] MEDS: LEVOFLOXACIN 500MG/D5W (PMX) 100 ML IVPB SCH (11:14)
--- NOTE | 2019-03-26 11:54 | PN ---
Date/Time of Note Date/Time of Note DATE: 03/26/19 TIME: 11:52 Assessment/Plan VTE Prophylaxis Risk score (from Ns)>0 risk: 7 SCD applied (from Ns): Yes Pharmacological prophylaxis: NA/contraindicated Pharm contraindication: low risk/ambulating Lines/Catheters IV Catheter Type (from Nrsg): Saline Lock Urinary Cath still in place: No Assessment/Plan Assessment/Plan 1. s/p left knee arthroplasty and metal hardware removal after ORIF of the medial aspect of the proximal tibial metaphysis 2. DM type I or II? Incomplete data. Pt was taking Metformin but said it is not helping him. With type I diabetes it is useless. Per previous record pt has DM type I. C -peptide is pending. It is uncontrolled 3. homelessness. Pt has friend and address Unclear how Physical therapy will be given. Also pt has a wound on right knee 4. UTI with dysuria. Previous lab work is positive for UTI. Pt reported weakness while urinating. 6. Normocytic normochromic iron def.anemia 7. Proteinuria, more likely to 2.2 UTI 8. Hypocalcemia 9 Anemia with acute blood loss?? Assessment/Plan - cw levaquin -Per Dr Hoover aspirin was switched to 325 daily -pain contol -Monitor hemoglobin, on ASA 325 daily - cw lantus and add mealtime insulin -SNIF - CW iv Fe dispo pending SNIF vs home Result Diagram: 03/25/19 0428 03/24/19 0432 Results 24hrs Laboratory Tests Test 03/25/19 12:46 03/25/19 17:44 03/25/19 21:14 03/26/19 08:34 Bedside Glucose 319 H 181 133 192 Subjective 24 Hr Interval Summary Free Text/Dictation Feels betetr everyday no SNIF yet Exam/Review of Systems Exam Vitals Vital Signs Date Temp Pulse Resp B/P (MAP) Pulse Ox O2 O2 Flow FiO2 Time Delivery Rate 03/26/19 98.2 89 18 132/81 90 07:29 (98) 03/25/19 Room Air 15:33 Intake and Output 03/25/19 03/25/19 03/26/19 1515:00 23:00 07:00 IntakeIntake Total 1040 ml 360 ml OutputOutput Total 700 ml 500 ml 400 ml BalanceBalance 340 ml -140 ml -400 ml Exam Constitutional: alert, oriented Neck: supple Respiratory: clear to auscultation Cardiovascular: regular rate and rhythm Gastrointestinal: soft Genitourinary - Male: CVA tenderness; No nl penis, No nl scrotum, No discharge, No other Extremities: edema (right knee with surgical wound) Results Results 24hrs Laboratory Tests Test 03/25/19 12:46 03/25/19 17:44 03/25/19 21:14 03/26/19 08:34 Bedside Glucose 319 H 181 133 192 Medications Medication Current Medications Hydromorphone HCl (Dilaudid) 0.5 mg Q2H PRN IV SEVERE PAIN LEVEL 7-10; Start 03/21/19 at 17:30 Acetaminophen/ Hydrocodone Bitart ([place] (10)) 1 tab Q6H PRN PO MODERATE PAIN LEVEL 4-6 Last administered on 03/23/19 08:27; Admin Dose 1 TAB; Start 03/21/19 at 17:30 Gabapentin (Neurontin) 300 mg TID PO Last administered on 03/26/19at 08:43; Admin Dose 300 MG; Start 03/21/19 at 21:00 Diagnostic Test (Pha) (Accu-Chek) 1 ea AC MEALS AND BEDTIME XX Last administered on 03/25/19 21:15; Admin Dose 1 EA; Start 03/21/19 at 21:00 Insulin Aspart (Novolog Insulin Pen) NOVOLOG *MILD* ALGORITHM WITH MEALS BEDTIME SC Last administered on 03/26/19 08:46; Admin Dose 2 UNIT; Start 03/21/19 at 18:00 Miscellaneous Information 1 ea NOTE XX ; Start 03/21/19 at 18:30 Glucose (Glutose) 15 gm Q15M PRN PO DECREASED GLUCOSE; Start 03/21/19 at 18:30 Glucose (Glutose) 22.5 gm Q15M PRN PO DECREASED GLUCOSE; Start 03/21/19 at 18:30 Dextrose (D50w Syringe) 25 ml Q15M PRN IV DECREASED GLUCOSE; Start 03/21/19 at 18:30 Dextrose (D50w Syringe) 50 ml Q15M PRN IV DECREASED GLUCOSE; Start 03/21/19 at 18:30 Glucagon (Glucagen) 1 mg Q15M PRN IM DECREASED GLUCOSE; Start 03/21/19 at 18:30 Glucose (Glutose) 15 gm Q15M PRN BUCCAL DECREASED GLUCOSE; Start 03/21/19 at 18:30 Ondansetron HCl (Zofran Inj) 4 mg Q6H PRN IV NAUSEA AND/OR VOMITING Last administered on 03/21/19 22:03; Admin Dose 4 MG; Start 03/21/19 at 21:30 Amlodipine Besylate (Norvasc) 5 mg DAILY PO Last administered on 03/26/19 08:44; Admin Dose 5 MG; Start 03/23/19 at 09:00 Levofloxacin/ Dextrose 100 ml @ 100 mls/hr Q24H IVPB Last administered on 11:14; Admin Dose 100 MLS/HR; Start 03/23/19 at 11:00 Calcium Carbonate (Oyster Shell Calcium) 1.25 gm BID PO Last administered on 03/26/19 08:43; Admin Dose 1.25 GM; Start 03/23/19 at 11:00 Acetaminophen (Tylenol Tab) 650 mg Q6H PRN PO MILD PAIN(1-3)OR ELEVATED TEMP Last administered on 03/25/19 04:58; Admin Dose 650 MG; Start 03/23/19 at 22:20 Aspirin (Ecotrin) 325 mg DAILY PO Last administered on 03/26/19 08:43; Admin Dose 325 MG; Start 03/25/19 at 09:00 Insulin Glargine (Lantus) 15 units QHS SC Last administered on 03/25/19 21:16; Admin Dose 15 UNITS; Start 03/25/19 at 21:00 Diagnostic Test (Pha) (Accu-Chek) 1 ea 02 XX ; Start 03/26/19 at 02:00 Insulin Aspart (Novolog Insulin Pen) 4 unit WITH MEALS SC Last administered on 03/26/19 08:44; Admin Dose 4 UNIT; Start 03/25/19 at 17:55 ALCIRA CORDON MD Mar 26, 2019 11:54
--- NOTE | 2019-03-26 11:55 | PDOCDIS ---
Discharge Instructions DIAGNOSIS Discharge Diagnosis Rt total knee replacement CONDITION [id number] Patient Condition: [id number] Good HOME CARE INSTRUCTIONS: [id number] Special Diet: [id number] Activity Restrictions: [id number] Slowly Increase Activity Rest between Activity Avoid heavy lifting FOLLOW UP/APPOINTMENTS Follow-up Plan FU Dr Wagner in 1 week fu PCP in 1-2 weeks return to ER if has worseing pain / fevers/chills fu CBC in1 week ALCIRA CORDON MD Mar 26, 2019 11:55
[2019-03-26] MEDS ORDERED: GABA300C16 PO (11:58)
[2019-03-26] MEDS ORDERED: Insulin Glargine SC (11:58)
[2019-03-26] MEDS ORDERED: LEVO500T48 PO (11:58)
[2019-03-26] MEDS ORDERED: ASPI325T32 PO (11:58)
--- NOTE | 2019-03-26 12:54 | PN ---
Date/Time of Note Date/Time of Note DATE: 03/26/19 TIME: 12:54 Assessment/Plan VTE Prophylaxis Risk score (from Nsg)>0 risk: 7 SCD applied (from Ns): Yes Pharmacological prophylaxis: NA/contraindicated Pharm contraindication: low risk/ambulating Lines/Catheters IV Catheter Type (from Nrsg): Saline Lock Urinary Cath still in place: No Assessment/Plan Assessment/Plan 1. s/p left knee arthroplasty and metal hardware removal after ORIF of the medial aspect of the proximal tibial metaphysis 2. DM type I or II? Incomplete data. Pt was taking Metformin but said it is not helping him. With type I diabetes it is useless. Per previous record pt has DM type I. C -peptide is pending. It is uncontrolled 3. homelessness. Pt has friend and address Unclear how Physical therapy will be given. Also pt has a wound on right knee 4. UTI with dysuria. Previous lab work is positive for UTI. Pt reported weakness while urinating. 6. Normocytic normochromic iron def.anemia 7. Proteinuria, more likely to 2.2 UTI 8. Hypocalcemia 9 Anemia with acute blood loss?? Assessment/Plan - cw levaquin -Per Dr Hoover aspirin was switched to 325 daily -pain contol -Monitor hemoglobin, on ASA 325 daily - cw lantus and mealtime insulin -SNIF dispo pending SNIF vs home today Result Diagram: 03/25/19 0428 03/24/19 0432 Results 24hrs Laboratory Tests Test 03/25/19 17:44 03/25/19 21:14 03/26/19 08:34 Bedside Glucose 181 133 192 Subjective 24 Hr Interval Summary Free Text/Dictation Patient feels better. 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 Exam/Review of Systems Exam Vitals Vital Signs Date Temp Pulse Resp B/P (MAP) Pulse Ox O2 O2 Flow FiO2 Time Delivery Rate 03/26/19 98.2 89 18 132/81 90 07:29 (98) 03/25/19 Room Air 15:33 Intake and Output 03/25/19 03/25/19 03/26/19 1515:00 23:00 07:00 IntakeIntake Total 1040 ml 360 ml OutputOutput Total 700 ml 500 ml 400 ml BalanceBalance 340 ml -140 ml -400 ml Exam Constitutional: alert, oriented Neck: supple Respiratory: clear to auscultation Cardiovascular: regular rate and rhythm Gastrointestinal: soft Genitourinary - Male: CVA tenderness; No nl penis, No nl scrotum, No discharge, No other Extremities: edema (right knee with surgical woun Results Results 24hrs Laboratory Tests Test 03/25/19 17:44 03/25/19 21:14 03/26/19 08:34 Bedside Glucose 181 133 192 Medications Medication Current Medications Hydromorphone HCl (Dilaudid) 0.5 mg Q2H PRN IV SEVERE PAIN LEVEL 7-10; Start 03/21/19 at 17:30 Acetaminophen/ Hydrocodone Bitart ([place] ()) 1 tab Q6H PRN PO MODERATE PAIN LEVEL 4-6 Last administered on 03/23/19 08:27; Admin Dose 1 TAB; Start 03/21/19 at 17:30 Gabapentin (Neurontin) 300 mg TID PO Last administered on 03/26/19 08:43; Admin Dose 300 MG; Start 03/21/19 at 21:00 Diagnostic Test (Pha) (Accu-Chek) 1 ea AC MEALS AND BEDTIME XX Last administered on 03/25/19at 21:15; Admin Dose 1 EA; Start 03/21/19 at 21:00 Insulin Aspart (Novolog Insulin Pen) NOVOLOG *MILD* ALGORITHM WITH MEALS BEDTIME SC Last administered on 03/26/19at 08:46; Admin Dose 2 UNIT; Start 03/21/19 at 18:00 Miscellaneous Information 1 ea NOTE XX ; Start 03/21/19 at 18:30 Glucose (Glutose) 15 gm Q15M PRN PO DECREASED GLUCOSE; Start 03/21/19 at 18:30 Glucose (Glutose) 22.5 gm Q15M PRN PO DECREASED GLUCOSE; Start 03/21/19 at 18:30 Dextrose (D50w Syringe) 25 ml Q15M PRN IV DECREASED GLUCOSE; Start 03/21/19 at 18:30 Dextrose (D50w Syringe) 50 ml Q15M PRN IV DECREASED GLUCOSE; Start 03/21/19 at 18:30 Glucagon (Glucagen) 1 mg Q15M PRN IM DECREASED GLUCOSE; Start 03/21/19 at 18:30 Glucose (Glutose) 15 gm Q15M PRN BUCCAL DECREASED GLUCOSE; Start 03/21/19 at 18:30 Ondansetron HCl (Zofran Inj) 4 mg Q6H PRN IV NAUSEA AND/OR VOMITING Last administered on 03/21/19 22:03; Admin Dose 4 MG; Start 03/21/19 at 21:30 Amlodipine Besylate (Norvasc) 5 mg DAILY PO Last administered on 03/26/19 08:44; Admin Dose 5 MG; Start 03/23/19 at 09:00 Levofloxacin/ Dextrose 100 ml @ 100 mls/hr Q24H IVPB Last administered on 03/26/19 11:14; Admin Dose 100 MLS/HR; Start 03/23/19 at 11:00 Calcium Carbonate (Oyster Shell Calcium) 1.25 gm BID PO Last administered on 03/26/19 08:43; Admin Dose 1.25 GM; Start 03/23/19 at 11:00 Acetaminophen (Tylenol Tab) 650 mg Q6H PRN PO MILD PAIN(1-3)OR ELEVATED TEMP Last administered on 03/25/19 04:58; Admin Dose 650 MG; Start 03/23/19 at 22:20 Aspirin (Ecotrin) 325 mg DAILY PO Last administered on 03/26/19 08:43; Admin Dose 325 MG; Start 03/25/19 at 09:00 Insulin Glargine (Lantus) 15 units QHS SC Last administered on 03/25/19 21:16; Admin Dose 15 UNITS; Start 03/25/19 at 21:00 Diagnostic Test (Pha) (Accu-Chek) 1 ea 02 XX ; Start 03/26/19 at 02:00 Insulin Aspart (Novolog Insulin Pen) 4 unit WITH MEALS SC Last administered on 03/26/19 08:44; Admin Dose 4 UNIT; Start 03/25/19 at 17:55 ALCIRA CORDON MD Mar 26, 2019 12:54
[2019-03-26 14:03] VITALS: BP 104/56; PULSE 91; RESP 18
--- NOTE | 2019-03-26 14:45 | DS ---
DATE OF ADMISSION: 03/21/2019 DATE OF DISCHARGE: 03/26/2019 HISTORY OF PRESENTING ILLNESS AND HOSPITAL COURSE: This is a 48-year-old male with a past medical hi story of right knee arthritis who was admitted electively by Dr. Medina for right knee replacement . The patient had severe osteoarthritis of the right knee, status post medial plateau fracture surge ry, ORIF and retained hardware. The patient had right total knee arthroplasty on 03/21/2019. He had removal of hardware of the left medial plateau. Postop, the patient's hemoglobin dropped down from 9.3 to 8 and then 7 range. However, there was no bleeding at the surgical site. The patient was see n by Dr. Medina. Aspirin was reduced from 325 b.i.d. to 325 daily. The patient's insulin was adj usted since sugars were high in the 300s. UA was positive. The patient was started on Levaquin. Ur ine culture came out positive for mixed gram-positive organism. The patient was continued on Levaqui n. The patient's condition was improving every day. However, the patient lived in a friend's house [place]. manager safe was working on patient on SNF placement. Today, the patient will be disch arged home either on SNF or home health in the friend's house. DISCHARGE CONDITION: Stable. DISCHARGE CONDITION: Good. DISCHARGE DIET: 1800 ADA. DISCHARGE MEDICATIONS: 1. Aspirin 325 p.o. daily for 10 days. 2. Gabapentin 300 p.o. t.i.d. 3. Levaquin 500 mg p.o. daily for 5 days. Continue medications: 1. Metformin 1000 p.o. b.i.d. 2. Insulin Lantus, he has been taking 30 units at bedtime. FOLLOWUP: The patient was instructed to follow up with Dr. Medina in 1 week, PCP in about 1 to 2 weeks. If the patient goes to SNF, arrangement will be done for walker as PT has cleared the patient . Dictated By: ALCIRA LANTIGUA/ALEXANDER Conf#: [id number] DID#: [id number] CC: RAISSA MEDINA MD; MICHELLE MADRID MD;*End*
[2019-03-26 20:51] VITALS: BP 143/80; PULSE 92; RESP 19
[2019-03-26] MEDS: HYDROCODONE/APAP (10/325) TAB PO PRN (21:00)
[2019-03-26] MEDS: INSULIN GLARGINE [LANTus] (100 UNITS/ML) SYG SC SCH (21:06)
[2019-03-27 02:34] VITALS: BP 91/55; PULSE 78; RESP 18
[2019-03-27] MEDS: ACCU-CHEK XX SCH ×3 (02:36→13:14)
[2019-03-27 07:25] VITALS: BP 125/70; PULSE 88; RESP 18
[2019-03-27] MEDS: INSULIN ASPART [NOVOLOG] 3 ML PEN SC SCH ×4 (09:24→13:19)
[2019-03-27] MEDS: GABAPENTIN 300 MG CAP PO SCH ×2 (09:25→13:14)
[2019-03-27] MEDS: AMLODIPINE 5 MG TAB PO SCH (09:25)
[2019-03-27] MEDS: ASPIRIN (EC) 325 MG TAB PO SCH (09:25)
[2019-03-27] MEDS: CALCIUM CARBONATE 1.25 GM TAB PO SCH (09:25)
[2019-03-27] MEDS: LEVOFLOXACIN 500MG/D5W (PMX) 100 ML IVPB SCH (11:40)
[2019-03-27 14:21] VITALS: BP 130/85; PULSE 87; RESP 18
--- NOTE | 2019-03-27 14:40 | QN ---
Documentation Comment SEEN AND EXAMINED SEE DC SUMMARY ALCIRA CORDON MD Mar 27, 2019 14:40
[2019-03-28] MEDS ORDERED: LEVOFLOXACIN 500 MG TAB PO SCH (06:00)
== END 2019-03-27 16:40 | DRG 470 ==
LOC: REC 11:51 → MS1 19:26
PROVIDERS: ADMIT Specialist; ATTEND Internal Medicine Nephrology
PROC: 0QPG04Z Removal of Internal Fixation Device from Right Tibia, Open Approach (ICD-10-PCS; 2019-03-21)
PROC: 0SRC069 Replacement of Right Knee Joint with Oxidized Zirconium on Polyethylene Synthetic Substitute, Cemented, Open Approach (ICD-10-PCS; principal; 2019-03-21 15:00)
DX: M17.31 Unilateral post-traumatic osteoarthritis, right knee (principal); D62 Acute posthemorrhagic anemia; N39.0 Urinary tract infection, site not specified; Z87.81 Personal history of (healed) traumatic fracture; Z47.2 Encounter for removal of internal fixation device; E10.9 Type 1 diabetes mellitus without complications; Z59.0 Homelessness; R30.0 Dysuria; I10 Essential (primary) hypertension; R80.9 Proteinuria, unspecified; E83.51 Hypocalcemia
CPT/HCPCS: 71045; 76856; 80048; 80053; 81001; 82962; 83036; 83540; 84153; 84154; 84681; 85014; 85018; 85025; 85610; 87086; 88300; 88304; 88311; 97110; 97116; 97161; 97530; C1713; C1776; J0690; J1100; J1815; J1956; J2250; J2274; J2405; J2710; J2916; J3010; J7030; J7042

== ENCOUNTER 2019-05-16 10:07 | Inpatient (IN) | payer OTHER ==
[2019-05-16] VITALS (26 sets, daily range): BP systolic 106–172; BP diastolic 56–92; PULSE 75–98; RESP 13–24; Ht 167.6 cm; Wt 64.0 kg
[~2019-05-16] VITALS: Ht 167.6 cm; Wt 64.0 kg
[~2019-05-16 10:07] MED LIST changes: +ASPI-817 PO; +ASPI325T32 PO; +ATOR20TA38 PO; +CEFA1SYR4 IV; +EPINEPHrine 1 MG/ML 30 ML INJ IRR ONE; +FAMO-96 PO; +FER325 PO; +GABA300C16 PO; +HYDR-3980 PO; +INSU100I33 SC; -INSULIN SC*; +LACT1CAP57 PO; +LEVO500T48 PO; +METO-448 PO; +NOVO3I SC; -SEVOFLURANE 15 MIN ONE
[2019-05-16] MEDS ORDERED: VANCOMYCIN 1 GM (PMX) 250 ML IVPB ONE (11:30)
--- NOTE | 2019-05-16 13:55 | HPN ---
Date/Time of Note Date/Time of Note DATE: 05/16/19 TIME: 13:55 Interval H&P Admission Note Pt. seen H&P reviewed: No system changes RAISSA DIAZ MD May 16, 2019 13:55
[2019-05-16] MEDS ORDERED: VANCOMYCIN 500 MG (PMX) 100 ML IVPB SCH (14:00)
--- NOTE | 2019-05-16 15:21 | PREAC ---
Date/Time of Note Date/Time of Note DATE: 05/16/19 TIME: 15:10 Anesthesia Eval and Record Evaluation Time Pre-Procedure Interview DATE: 05/16/19 TIME: 15:10 Age 48 Sex male NPO: 8 hrs Preoperative diagnosis right knee osteoarthritis Planned procedure RIGHT KNEE IRRIGATION AND DEBRIDEMENT Past Medical History Past Medical History: Includes Cardio: HTN, Dyslipidemia Endo: Diabetes Surgery & Anesthesia Issues No known issue Meds Anticoagulation: No Beta Arturo within 24 hr: No Reason Beta Arturo not given: Pt. not on B-Arturo Reported Medications Ferrous Sulfate* (Ferrous Sulfate*) 325 Mg Tabec, 325 MG PO BID, TAB 05/16/19 Hydrocodone/Acetaminophen ([place] 10-325 Tablet) 1 Each Tablet, 1 TAB PO BID PRN for PAIN LEVEL 7-10, TAB 05/16/19 Insulin Glargine,Hum.rec.anlog (Basaglar Kwikpen U-100) 100 Unit/1 Ml Insuln.pen, 100 UNIT SC QHS, EA 05/16/19 Discontinued Scripts Levofloxacin* (Levaquin*) 500 Mg Tablet, 500 MG PO DAILY for 5 Days, TAB Prov:ALCIRA CORDON MD 03/26/19 Gabapentin* (Gabapentin*) 300 Mg Capsule, 300 MG PO TID for 14 Days, CAP Prov:ALCIRA CORDON MD 03/26/19 Aspirin (Aspir-Sabrina) 325 Mg Tablet.dr, 325 MG PO DAILY for 10 Days Prov:ALCIRA CORDON MD 03/26/19 [Insulin Glargine] 100 UNITS/ML SOLN No Conflict Check, 30 UNITS SC DAILY@2000 for 30 Days, 5 Refills take home dose insulin Prov:ALCIRA CORDON MD 03/26/19 Metformin Hcl* (Metformin Hcl*) 1,000 Mg Tablet, 1000 MG PO WITH BREAKFAST DINNE for 30 Days, #60 TAB 5 Refills Prov:SAKINA MONROY MD 06/06/18 Meds reviewed: Yes Allergies Coded Allergies: No Known Allergy (Unverified , 05/16/19) Allergies Reviewed: Yes Labs/Studies Labs Reviewed: Reviewed by anesthesiologist Result Diagram: 05/16/19 1200 05/16/19 1200 Laboratory Tests 05/16/19 12:00 test: N/A Studies: ECG, CXR Pre-procedure Exam Last vitals Vital Signs Date Temp Pulse Resp B/P (MAP) Pulse Ox O2 O2 Flow FiO2 Time Delivery Rate 05/16/19 99.8 92 16 106/63 97 Room Air 12:53 (77) Airway: Adequate mouth opening Mallampati: Mallampati II Teeth: Normal Lung: Normal Heart: Normal ASA Physical Status ASA physical status: 2 Emergency: None Planned Anesthetic General/MAC: MAC Pre-operative Attestations Prior to commencing anesthesia and surgery, the patient was re-evaluated, there was verification of: *The patient's identity *The results of appropriate recent lab work and preoperative vital signs *The above evaluation not changing prior to induction *Anesthetic plan, risk benefits, alternative and complications discussed with patient/family; questions answered; patient/family understands, accepts and wishes to proceed. WINSTON NUNEZ May 16, 2019 15:20
[2019-05-16] MEDS ORDERED: FENTAnyl 50 MCG/ML VIAL ONE (15:27)
[2019-05-16] MEDS ORDERED: CEFAZOLIN 1 GM INJ ONE (15:27)
[2019-05-16] MEDS ORDERED: MIDAZOLAM 1 MG/ML 2 ML INJ ONE (15:27)
[2019-05-16] MEDS ORDERED: FENTAnyl 50 MCG/ML VIAL IV PRN ×2 (15:30)
[2019-05-16] MEDS ORDERED: LABETALOL HCL 20MG INJ IV PRN (15:30)
[2019-05-16] MEDS ORDERED: METOCLOPRAMIDE 10 MG INJ IV PRN (15:30)
[2019-05-16] MEDS ORDERED: ONDANSETRON 4 MG INJ IV PRN ×2 (15:30→18:30)
[2019-05-16] MEDS ORDERED: hydrALAzine 20 MG INJ IV PRN (15:30)
[2019-05-16] MEDS ORDERED: HYDROmorphONE 1 MG/5 ML IV SYRINGE IV PRN ×2 (15:30)
[2019-05-16] MEDS ORDERED: PROPOFOL 20 ML ONE (16:02)
[2019-05-16] MEDS ORDERED: ROCURONIUM 50 MG INJ ONE (16:02)
[2019-05-16] MEDS ORDERED: ONDANSETRON 4 MG INJ ONE (16:02)
[2019-05-16] MEDS ORDERED: LIDOCAINE 100 MG SYRINGE ONE (16:02)
[2019-05-16] MEDS ORDERED: SUGAMMADEX SODIUM 200 MG/2 ML VIAL IV ONE (16:03)
[2019-05-16] MEDS ORDERED: DEXAMETHASONE 4 MG/ML 5 ML INJ ONE (16:03)
--- NOTE | 2019-05-16 16:38 | OPR ---
Date/Time of Note Date/Time of Note DATE: 05/16/19 TIME: 16:36 Operative Report Preoperative Diagnosis right knee infection Postoperative Diagnosis same Operation/Procedure Performed i and d right knee Surgeon see signature line Car Scrubber none Anesthesia Type: general Estimated Blood Loss: 50 - 100 ml's Transfusion none Specimen none Grafts/Implants none Tubes/Drains drain Complications none Procedure Description i and d right knee RAISSA DIAZ MD May 16, 2019 16:38
--- NOTE | 2019-05-16 16:46 | PAC ---
Date/Time of Note Date/Time of Note DATE: 05/16/19 TIME: 16:46 Post-Anesthesia Notes Post-Anesthesia Note Last documented vital signs Vital Signs Date Temp Pulse Resp B/P (MAP) Pulse Ox O2 O2 Flow FiO2 Time Delivery Rate 05/16/19 99.8 92 16 106/63 97 Room Air 12:53 (77) Activity: WNL Respiratory function: WNL Cardiovascular function: WNL Mental status: Baseline Pain reasonably controlled: Yes Hydration appropriate: Yes Nausea/Vomiting absent: Yes WINSTON NUNEZ May 16, 2019 16:46
[2019-05-16] MEDS ORDERED: morphine 2 MG INJ IV PRN (17:30)
[2019-05-16] MEDS ORDERED: HYDROCODONE/APAP (10/325) TAB PO PRN ×2 (17:30→18:00)
--- NOTE | 2019-05-16 18:31 | CONS ---
Assessment/Plan Assessment/Plan Assessment/Plan (Daily) Assessment and plan: 48-year-old male with a past medical history possible diabetes, right knee replacement who was brought in for right knee arthroscopic surgery because of swelling occurring prior to admission. #Status post right knee arthroscopic surgery: Occurred earlier today -Continue medical management per primary orthopedic surgery team including follow-up culture results, pain control medications, fluids, antibiotics -Tylenol PRN pain and fevers #Questionable diabetes: We will check A1c and for now put patient on sliding scale insulin and monitor sugars. We will continue to follow along with you Consultation Date/Type/Reason Admit Date/Time May 16, 2019 at 15:01 Date/Time of Note DATE: 05/16/19 TIME: 18:31 Hx of Present Illness 48-year-old male with a past medical history possible diabetes, right knee replacement in March 2019 secondary to severe osteoarthritis of the right knee (status post medial plateau fracture surgery, ORIF and retained hardware. He had removal of hardware of the left medial plateau at that time). Patient came back in today at the request orthopedic surgery team because of knee swelling and pain occurring for the last few days prior to this admission. Patient also has been complaining about uncontrolled sugars. He underwent knee arthroscopic surgery earlier today and presently denies any chest pain, shortness of breath, nausea vomiting, diarrhea const patient, fever or chills. Past Medical History Home Meds Reported Medications Ferrous Sulfate* (Ferrous Sulfate*) 325 Mg Tabec, 325 MG PO BID, TAB 05/16/19 Hydrocodone/Acetaminophen ([place] 10-325 Tablet) 1 Each Tablet, 1 TAB PO BID PRN for PAIN LEVEL 7-10, TAB 05/16/19 Insulin Glargine,Hum.rec.anlog (Basaglar Kwikpen U-100) 100 Unit/1 Ml Insuln.pen, 100 UNIT SC QHS, EA 05/16/19 Discontinued Scripts Levofloxacin* (Levaquin*) 500 Mg Tablet, 500 MG PO DAILY for 5 Days, TAB Prov:ALCIRA CORDON MD 03/26/19 Gabapentin* (Gabapentin*) 300 Mg Capsule, 300 MG PO TID for 14 Days, CAP Prov:ALCIRA CORDON MD 03/26/19 Aspirin (Aspir-Sabrina) 325 Mg Tablet.dr, 325 MG PO DAILY for 10 Days Prov:ALCIRA CORDON MD 03/26/19 [Insulin Glargine] 100 UNITS/ML SOLN No Conflict Check, 30 UNITS SC DAILY@1999 for 30 Days, 5 Refills take home dose insulin Prov:ALCIRA CORDON MD 03/26/19 Metformin Hcl* (Metformin Hcl*) 1,000 Mg Tablet, 1000 MG PO WITH BREAKFAST DINNE for 30 Days, #60 TAB 5 Refills Prov:SAKINA MONROY MD 06/06/18 Medications Current Medications Hydromorphone HCl (Dilaudid) 0.2 mg PACU PRN IV MILD PAIN 1-3 Last administered on 05/16/19at 17:15; Admin Dose 0.2 MG; Start 05/16/19 at 15:30; Stop 05/16/19 at 19:00 Hydromorphone HCl (Dilaudid) 0.4 mg PACU PRN IV MOD PAIN 4-6; Start 05/16/19 at 15:30; Stop 05/16/19 at 19:00 Fentanyl (Sublimaze) 25 mcg PACU ORDER PRN IV MILD PAIN 1-3; Start 05/16/19 at 15:30; Stop 05/16/19 at 19:00 Fentanyl (Sublimaze) 50 mcg PACU ORDER PRN IV MOD PAIN 4-6; Start 05/16/19 at 15:30; Stop 05/16/19 at 19:00 Ondansetron HCl (Zofran Inj) 4 mg PACU ORDER PRN IV NAUSEA/VOMITING; Start 05/16/19 at 15:30; Stop 05/16/19 at 19:00 Metoclopramide HCl (Reglan) 10 mg PACU ORDER PRN IV NAUSEA/VOMITING Last administered on 05/16/19at 17:15; Admin Dose 10 MG; Start 05/16/19 at 15:30; Stop 05/16/19 at 19:00 Labetalol HCl (Labetalol) 5 mg PACU ORDER PRN IV HIGH BLOOD PRESSURE; Start 05/16/19 at 15:30; Stop 05/16/19 at 19:00 Hydralazine HCl (Apresoline) 5 mg PACU ORDER PRN IV HIGH BLOOD PRESSURE; Start 05/16/19 at 15:30; Stop 05/16/19 at 19:00 Vancomycin HCl 250 ml @ 125 mls/hr Q8H IVPB ; Start 05/16/19 at 20:00; Stop 05/18/19 at 13:59 Morphine Sulfate (morphine) 2 mg Q2H PRN IV SEVERE PAIN LEVEL 7-10; Start 05/16/19 at 17:30 Acetaminophen/ Hydrocodone Bitart ([place] (10/325)) 1 tab Q4H PRN PO MODERATE PAIN LEVEL 4-6; Start 05/16/19 at 18:00 Acetaminophen/ Hydrocodone Bitart ([place] (10/325)) 2 tab Q4H PRN PO MODERATE PAIN LEVEL 4-6; Start 05/16/19 at 18:00 Ondansetron HCl (Zofran Inj) 4 mg Q6H PRN IV NAUSEA AND/OR VOMITING; Start 05/16/19 at 18:30; Status UNV Allergies: Coded Allergies: No Known Allergy (Unverified , 05/16/19) Past Surgical History Past Surgical Hx: other (Right knee replacement March 2019) Social History Smoking Status: Never smoker Exam/Review of Systems Exam Vitals Vital Signs Date Temp Pulse Resp B/P (MAP) Pulse Ox O2 O2 Flow FiO2 Time Delivery Rate 05/16/19 90 18 144/86 98 Room Air 18:06 (105) 05/16/19 99.2 16:51 Intake and Output 05/15/19 05/15/19 05/16/19 1515:00 23:00 07:00 IntakeIntake Total 0 ml BalanceBalance 0 ml Exam Gen: lying in bed, No acute distress Head: Atraumatic Eyes: Normal Conjunctiva ENT: Normal External Ears, Nose and Mouth. Neck: Full range of motion. No meningismus. Resp: Clear to auscultation bilaterally Cardio: Regular rate and rhythm, no murmurs Abd: Soft, nontender, nondistended, no rebound or guarding, normal bowel sounds Ext: Bandage over right lower extremity Neuro: no focal deficits Results Result Diagram: 05/16/19 1200 05/16/19 1200 Results 24hrs Laboratory Tests Test 05/16/19 11:59 05/16/19 12:00 05/16/19 17:56 Bedside Glucose 215 182 White Blood Count 7.0 # Red Blood Count 3.95 #L Hemoglobin 11.0 #L Hematocrit 34.7 #L Mean Corpuscular Volume 87.8 Mean Corpuscular Hemoglobin 27.8 L Mean Corpuscular Hemoglobin Concent 31.7 L Red Cell Distribution Width 12.7 Platelet Count 302 # Mean Platelet Volume 10.0 Immature Granulocytes % 0.400 Neutrophils % 78.5 H Lymphocytes % 11.9 L Monocytes % 8.2 Eosinophils % 0.4 Basophils % 0.6 Nucleated Red Blood Cells % 0.0 Immature Granulocytes # 0.030 Neutrophils # 5.5 Lymphocytes # 0.8 Monocytes # 0.6 Eosinophils # 0.0 Basophils # 0.0 Nucleated Red Blood Cells # 0.0 Prothrombin Time 14.3 Prothrombin Time Ratio 1.1 INR International Normalized Ratio 1.10 Activated Partial Thromboplast Time 36.4 H Sodium Level 139 Potassium Level 5.7 H Chloride Level 104 Carbon Dioxide Level 23 Anion Gap 12 Blood Urea Nitrogen 30 H Creatinine 1.37 H Est Glomerular Filtrat Rate mL/min 55 L Glucose Level 217 Calcium Level 9.0 Total Bilirubin 0.5 Direct Bilirubin 0.00 Indirect Bilirubin 0.5 Aspartate Amino Transf (AST/SGOT) 19 Alanine Aminotransferase (ALT/SGPT) 17 Alkaline Phosphatase 134 H Total Protein 8.0 Albumin 3.8 Globulin 4.20 H Albumin/Globulin Ratio 0.90 Medications Medication Current Medications Hydromorphone HCl (Dilaudid) 0.2 mg PACU PRN IV MILD PAIN 1-3 Last administered on 05/16/19at 17:15; Admin Dose 0.2 MG; Start 05/16/19 at 15:30; Stop 05/16/19 at 19:00 Hydromorphone HCl (Dilaudid) 0.4 mg PACU PRN IV MOD PAIN 4-6; Start 05/16/19 at 15:30; Stop 05/16/19 at 19:00 Fentanyl (Sublimaze) 25 mcg PACU ORDER PRN IV MILD PAIN 1-3; Start 05/16/19 at 15:30; Stop 05/16/19 at 19:00 Fentanyl (Sublimaze) 50 mcg PACU ORDER PRN IV MOD PAIN 4-6; Start 05/16/19 at 15:30; Stop 05/16/19 at 19:00 Ondansetron HCl (Zofran Inj) 4 mg PACU ORDER PRN IV NAUSEA/VOMITING; Start 05/16/19 at 15:30; Stop 05/16/19 at 19:00 Metoclopramide HCl (Reglan) 10 mg PACU ORDER PRN IV NAUSEA/VOMITING Last administered on 05/16/19at 17:15; Admin Dose 10 MG; Start 05/16/19 at 15:30; Stop 05/16/19 at 19:00 Labetalol HCl (Labetalol) 5 mg PACU ORDER PRN IV HIGH BLOOD PRESSURE; Start 05/16/19 at 15:30; Stop 05/16/19 at 19:00 Hydralazine HCl (Apresoline) 5 mg PACU ORDER PRN IV HIGH BLOOD PRESSURE; Start 05/16/19 at 15:30; Stop 05/16/19 at 19:00 Vancomycin HCl 250 ml @ 125 mls/hr Q8H IVPB ; Start 05/16/19 at 20:00; Stop 05/18/19 at 13:59 Morphine Sulfate (morphine) 2 mg Q2H PRN IV SEVERE PAIN LEVEL 7-10; Start 05/16/19 at 17:30 Acetaminophen/ Hydrocodone Bitart ([place] (10/325)) 1 tab Q4H PRN PO MODERATE PAIN LEVEL 4-6; Start 05/16/19 at 18:00 Acetaminophen/ Hydrocodone Bitart ([place] (10/325)) 2 tab Q4H PRN PO MODERATE PAIN LEVEL 4-6; Start 05/16/19 at 18:00 Ondansetron HCl (Zofran Inj) 4 mg Q6H PRN IV NAUSEA AND/OR VOMITING; Start 05/16/19 at 18:30; Status ANNEL PARTIDA May 16, 2019 18:31
[2019-05-16] MEDS ORDERED: DEXTROSE 50% 50 ML SYRINGE IV PRN ×2 (19:00)
[2019-05-16] MEDS ORDERED: GLUCOSE GEL 15 GRAM TUBE BUCCAL PRN (19:00)
[2019-05-16] MEDS ORDERED: GLUCOSE GEL 15 GRAM TUBE PO PRN ×2 (19:00)
[2019-05-16] MEDS ORDERED: GLUCAGON 1 MG INJ IM PRN (19:00)
[2019-05-16] MEDS: VANCOMYCIN 1 GM (PMX) 250 ML IVPB SCH (20:18)
[2019-05-16] MEDS: INSULIN ASPART [NOVOLOG] 3 ML PEN SC SCH (20:43)
[2019-05-16] MEDS ORDERED: INSULIN GLARGINE [LANTus] (100 UNITS/ML) SYG SC SCH (22:00)
[2019-05-16] MEDS ORDERED: MAGNESIUM HYDROXIDE 30ML CUP PO ONE (23:30)
[2019-05-16] MEDS ORDERED: NA POLYST SULFON 15 GM/60 ML BTL PO ONE (23:30)
[2019-05-17] MEDS ORDERED: INSULIN ASPART [NOVOLOG] 3 ML PEN SC ONE (02:30)
--- NOTE | 2019-05-17 02:52 | OPR ---
DATE OF OPERATION: 05/16/2019 SURGEON: Raissa Medina MD. ANESTHESIA: General. PREOPERATIVE DIAGNOSIS: Right knee swelling, rule out infection. POSTOPERATIVE DIAGNOSIS: Right knee swelling, rule out infection. PROCEDURE PERFORMED: Right knee arthroscopy with irrigation and debridement and culture of right octavia hidalgo. ESTIMATED BLOOD LOSS: 100 mL. TOURNIQUET TIME: 25 minutes. COMPLICATIONS: None. PROCEDURE: The patient is a 48-year-old male, who is 7 weeks status post right total knee replacemen t arthroplasty. The patient did well initially postoperatively with no signs of infection. The heri ent had prior surgery on the knee, consisting of a repair of a severely comminuted plateau fracture w ith resulting posttraumatic arthritis and deformity. The patient also has diabetes. The patient admits that the diabetes has been not well controlled. Jenn hidalgo also has had a very poor dental condition and has dental loss. The patient developed pain, swelling, redness in the last few days. The patient was admitted at this time to have the knee irrigated and cultures obtained. The patient taken to the operating room and general anesthetic given with intubation. Two grams of K efzol given for prophylaxis. Right leg prepped and draped in usual sterile manner. Tourniquet appli ed. A standard medial arthrotomy was made. Cultures taken from the serosanguineous fluid that was r emoved from the knee. The knee was irrigated with 6 liters of a solution involving all compartments. A medium Hemovac drain was placed into the knee joint. Arthrotomy was closed with 2-0 nylon suture . Compression bandage applied. Anesthetic reversed. The patient taken to recovery room in stable c ondition. Dictated By: RAISSA HAMMOND/NTS Conf#: [id number] DID#: [id number] CC: ANNEL GARBER;*EndCC*
[2019-05-17 03:07] VITALS: BP 172/82; PULSE 89; RESP 18
[2019-05-17] MEDS ORDERED: ACCU-CHEK XX ONE (04:30)
[2019-05-17] MEDS: VANCOMYCIN 1 GM (PMX) 250 ML IVPB SCH ×3 (04:54→20:26)
[2019-05-17 05:30] VITALS: BP 182/96; PULSE 89; RESP 18
[2019-05-17 06:30] VITALS: BP 132/63; PULSE 75
[2019-05-17] MEDS ORDERED: hydrALAzine 20 MG INJ IV ONE (06:30)
[2019-05-17 08:24] VITALS: BP 129/71; PULSE 96; RESP 18
[2019-05-17] MEDS: INSULIN ASPART [NOVOLOG] 3 ML PEN SC SCH ×5 (08:33→21:00)
--- NOTE | 2019-05-17 11:57 | CONS ---
Consult Date/Type/Reason Admit Date/Time May 16, 2019 at 15:01 Initial Consult Date Date/Time of Note DATE: 05/17/19 TIME: 11:56 Subjective Patient had no acute events overnight. Sugars are elevated. Objective Vitals Vital Signs Date Temp Pulse Resp B/P (MAP) Pulse Ox O2 O2 Flow FiO2 Time Delivery Rate 05/17/19 97.8 96 18 129/71 99 08:24 (90) 05/17/19 Room Air 05:30 Intake and Output 05/16/19 05/16/19 05/17/19 1515:00 23:00 07:00 IntakeIntake Total 550 ml 430 ml OutputOutput Total 10 ml 140 ml BalanceBalance 540 ml 290 ml Exam Gen: lying in bed, No acute distress Head: Atraumatic Eyes: Normal Conjunctiva ENT: Normal External Ears, Nose and Mouth. Neck: Full range of motion. No meningismus. Resp: Clear to auscultation bilaterally Cardio: Regular rate and rhythm, no murmurs Abd: Soft, nontender, nondistended, no rebound or guarding, normal bowel sounds Ext: Bandage over right lower extremity Neuro: no focal deficits Results/Medications Result Diagram: 05/17/19 0422 05/17/19 0422 Results 24 hrs Laboratory Tests Test 05/16/19 11:59 05/16/19 12:00 05/16/19 17:56 05/16/19 20:22 Bedside Glucose 215 182 309 H White Blood Count 7.0 # Red Blood Count 3.95 #L Hemoglobin 11.0 #L Hematocrit 34.7 #L Mean Corpuscular 87.8 Volume Mean Corpuscular 27.8 L Hemoglobin Mean Corpuscular 31.7 L Hemoglobin Concent Red Cell Distribution 12.7 Width Platelet Count 302 # Mean Platelet Volume 10.0 Immature Granulocytes 0.400 % Neutrophils % 78.5 H Lymphocytes % 11.9 L Monocytes % 8.2 Eosinophils % 0.4 Basophils % 0.6 Nucleated Red Blood 0.0 Cells % Immature Granulocytes 0.030 # Neutrophils # 5.5 Lymphocytes # 0.8 Monocytes # 0.6 Eosinophils # 0.0 Basophils # 0.0 Nucleated Red Blood 0.0 Cells # Prothrombin Time 14.3 Prothrombin Time 1.1 Ratio INR International 1.10 Normalized Ratio Activated 36.4 H Partial Thromboplast Time Sodium Level 139 Potassium Level 5.7 H Chloride Level 104 Carbon Dioxide Level 23 Anion Gap 12 Blood Urea Nitrogen 30 H Creatinine 1.37 H Est Glomerular 55 L Filtrat Rate mL/min Glucose Level 217 Calcium Level 9.0 Total Bilirubin 0.5 Direct Bilirubin 0.00 Indirect Bilirubin 0.5 Aspartate Amino 19 Transf (AST/SGOT) Alanine 17 Aminotransferase (ALT /SGPT) Alkaline Phosphatase 134 H Total Protein 8.0 Albumin 3.8 Globulin 4.20 H Albumin/Globulin 0.90 Ratio Test 05/16/19 21:52 05/17/19 02:12 05/17/19 04:22 05/17/19 04:58 Bedside Glucose 321 H 313 H 309 H White Blood Count 4.2 #L Red Blood Count 3.63 L Hemoglobin 10.1 L Hematocrit 32.2 L Mean Corpuscular 88.7 Volume Mean Corpuscular 27.8 L Hemoglobin Mean Corpuscular 31.4 L Hemoglobin Concent Red Cell Distribution 12.5 Width Platelet Count 333 Mean Platelet Volume 9.4 Immature Granulocytes 0.700 H % Neutrophils % 84.2 H Lymphocytes % 11.0 L Monocytes % 3.6 Eosinophils % 0.0 Basophils % 0.5 Nucleated Red Blood 0.0 Cells % Immature Granulocytes 0.030 # Neutrophils # 3.5 Lymphocytes # 0.5 L Monocytes # 0.2 L Eosinophils # 0.0 Basophils # 0.0 Nucleated Red Blood 0.0 Cells # Sodium Level 140 Potassium Level 4.4 Chloride Level 106 Carbon Dioxide Level 25 Anion Gap 9 Blood Urea Nitrogen 31 H Creatinine 1.12 Est Glomerular > 60 Filtrat Rate mL/min Glucose Level 317 H Hemoglobin A1c 7.9 H Calcium Level 8.3 L Phosphorus Level 3.8 Magnesium Level 2.3 Test 05/17/19 08:05 05/17/19 08:31 Lab Scanned Report REFERENCE LAB Bedside Glucose 289 H Home Meds Reported Medications Ferrous Sulfate* (Ferrous Sulfate*) 325 Mg Tabec, 325 MG PO BID, TAB 05/16/19 Hydrocodone/Acetaminophen ([place] 10-325 Tablet) 1 Each Tablet, 1 TAB PO BID PRN for PAIN LEVEL 7-10, TAB 05/16/19 Insulin Glargine,Hum.rec.anlog (Basaglar Kwikpen U-100) 100 Unit/1 Ml Insuln.pen, 100 UNIT SC QHS, EA 05/16/19 Discontinued Scripts Levofloxacin* (Levaquin*) 500 Mg Tablet, 500 MG PO DAILY for 5 Days, TAB Prov:ALCIRA CORDON MD 03/26/19 Gabapentin* (Gabapentin*) 300 Mg Capsule, 300 MG PO TID for 14 Days, CAP Prov:ALCIRA CORDON MD 03/26/19 Aspirin (Aspir-Sabrina) 325 Mg Tablet.dr, 325 MG PO DAILY for 10 Days Prov:ALCIRA CORDON MD 03/26/19 [Insulin Glargine] 100 UNITS/ML SOLN No Conflict Check, 30 UNITS SC DAILY@2000 for 30 Days, 5 Refills take home dose insulin Prov:ALCIRA CORDON MD 03/26/19 Metformin Hcl* (Metformin Hcl*) 1,000 Mg Tablet, 1000 MG PO WITH BREAKFAST DINNE for 30 Days, #60 TAB 5 Refills Prov:SAKINA MONROY MD 06/06/18 Medications Current Medications Vancomycin HCl 250 ml @ 125 mls/hr Q8H IVPB Last administered on 05/17/19at 04:54; Admin Dose 125 MLS/HR; Start 05/16/19 at 20:00; Stop 05/18/19 at 13:59 Morphine Sulfate (morphine) 2 mg Q2H PRN IV SEVERE PAIN LEVEL 7-10; Start 05/16/19 at 17:30 Acetaminophen/ Hydrocodone Bitart ([place] (10/325)) 1 tab Q4H PRN PO MODERATE PAIN LEVEL 4-6; Start 05/16/19 at 18:00 Acetaminophen/ Hydrocodone Bitart ([place] (10/325)) 2 tab Q4H PRN PO MODERATE PAIN LEVEL 4-6; Start 05/16/19 at 18:00 Ondansetron HCl (Zofran Inj) 4 mg Q6H PRN IV NAUSEA AND/OR VOMITING; Start 05/16/19 at 18:30 Insulin Aspart (Novolog Insulin Pen) NOVOLOG *MILD* ALGORITHM WITH MEALS BEDTIME SC Last administered on 05/17/19at 08:33; Admin Dose 4 UNIT; Start 05/16/19 at 21:00 Miscellaneous Information 1 ea NOTE XX ; Start 05/16/19 at 19:00 Glucose (Glutose) 15 gm Q15M PRN PO DECREASED GLUCOSE; Start 05/16/19 at 19:00 Glucose (Glutose) 22.5 gm Q15M PRN PO DECREASED GLUCOSE; Start 05/16/19 at 19:00 Dextrose (D50w Syringe) 25 ml Q15M PRN IV DECREASED GLUCOSE; Start 05/16/19 at 19:00 Dextrose (D50w Syringe) 50 ml Q15M PRN IV DECREASED GLUCOSE; Start 05/16/19 at 19:00 Glucagon (Glucagen) 1 mg Q15M PRN IM DECREASED GLUCOSE; Start 05/16/19 at 19:00 Glucose (Glutose) 15 gm Q15M PRN BUCCAL DECREASED GLUCOSE; Start 05/16/19 at 19:00 Insulin Glargine (Lantus) 12 units DAILY@2000 SC Last administered on 05/16/19at 21:56; Admin Dose 12 UNITS; Start 05/16/19 at 22:00 Assessment/Plan Hospital Course (Demo Recall) Assessment and plan: 48-year-old male with a past medical history possible diabetes, right knee replacement who was brought in for right knee arthroscopic surgery because of swelling occurring prior to admission. #Status post right knee arthroscopic surgery: Postop day #1 -Continue medical management per primary orthopedic surgery team including follow-up culture results, pain control medications, fluids, antibiotics -Tylenol PRN pain and fevers, follow-up final culture results #Questionable diabetes: A1c is elevated in the 10 range, sugars are high in the high 200 low 300 range. -We will increase the dose of Lantus, add aspart with meals, continue sliding scale We will continue to follow along with you ANNEL GARBER May 17, 2019 11:57
[2019-05-17 14:43] VITALS: BP 150/83; PULSE 74; RESP 18
[2019-05-17] MEDS: FERROUS SULFATE (EC) 325 MG TAB PO SCH (20:26)
[2019-05-17] MEDS: INSULIN GLARGINE [LANTus] (100 UNITS/ML) SYG SC SCH (20:35)
[2019-05-17] MEDS: HYDROCODONE/APAP (10/325) TAB PO PRN (20:42)
[2019-05-17 21:11] VITALS: BP 102/65; PULSE 80; RESP 20
[2019-05-18] VITALS (9 sets, daily range): BP systolic 98–128; BP diastolic 60–84; PULSE 34–87; RESP 16–19
[2019-05-18] MEDS: HYDROCODONE/APAP (10/325) TAB PO PRN (01:05)
[2019-05-18] MEDS: ACCU-CHEK XX SCH (02:00)
[2019-05-18] MEDS: VANCOMYCIN 1 GM (PMX) 250 ML IVPB SCH ×2 (04:39→13:07)
[2019-05-18] MEDS: INSULIN ASPART [NOVOLOG] 3 ML PEN SC SCH ×7 (07:50→20:50)
[2019-05-18] MEDS: FERROUS SULFATE (EC) 325 MG TAB PO SCH ×2 (08:55→20:49)
--- NOTE | 2019-05-18 14:03 | CONS ---
Consult Date/Type/Reason Admit Date/Time May 16, 2019 at 15:01 Initial Consult Date Date/Time of Note DATE: 05/18/19 TIME: 14:02 Subjective Per nursing staff, patient ambulating fairly well and tolerating diet. Sugars improved in the last 24 hours. Objective Vitals Vital Signs Date Temp Pulse Resp B/P (MAP) Pulse Ox O2 O2 Flow FiO2 Time Delivery Rate 05/18/19 98.7 73 17 98/65 (76) 90 07:25 05/17/19 Room Air 05:30 Intake and Output 05/17/19 05/17/19 05/18/19 1515:00 23:00 07:00 IntakeIntake Total 250 ml 500 ml OutputOutput Total 80 ml BalanceBalance 250 ml -80 ml 500 ml Exam Gen: lying in bed, No acute distress Head: Atraumatic Eyes: Normal Conjunctiva ENT: Normal External Ears, Nose and Mouth. Neck: Full range of motion. No meningismus. Resp: Clear to auscultation bilaterally Cardio: Regular rate and rhythm, no murmurs Abd: Soft, nontender, nondistended, no rebound or guarding, normal bowel sounds Ext: Bandage over right lower extremity Neuro: no focal deficits Results/Medications Result Diagram: 05/18/19 0417 05/18/19 0417 Results 24 hrs Laboratory Tests Test 05/17/19 17:36 05/17/19 20:28 05/18/19 04:17 05/18/19 08:26 Bedside Glucose 270 H 158 124 White Blood Count 6.2 # Red Blood Count 3.22 L Hemoglobin 9.2 L Hematocrit 28.6 L Mean Corpuscular Volume 88.8 Mean Corpuscular 28.6 L Hemoglobin Mean Corpuscular 32.2 Hemoglobin Concent Red Cell Distribution 12.7 Width Platelet Count 352 Mean Platelet Volume 9.5 Immature Granulocytes % 0.600 H Neutrophils % 63.6 Lymphocytes % 25.5 Monocytes % 8.2 Eosinophils % 1.6 Basophils % 0.5 Nucleated Red Blood 0.0 Cells % Immature Granulocytes # 0.040 H Neutrophils # 4.0 Lymphocytes # 1.6 Monocytes # 0.5 Eosinophils # 0.1 Basophils # 0.0 Nucleated Red Blood 0.0 Cells # Sodium Level 139 Potassium Level 3.7 Chloride Level 106 Carbon Dioxide Level 27 Anion Gap 6 Blood Urea Nitrogen 35 H Creatinine 1.11 Est Glomerular Filtrat > 60 Rate mL/min Glucose Level 176 # Calcium Level 8.3 L Phosphorus Level 3.4 Magnesium Level 2.1 Test 05/18/19 12:27 Bedside Glucose 72 Home Meds Reported Medications Ferrous Sulfate* (Ferrous Sulfate*) 325 Mg Tabec, 325 MG PO BID, TAB 05/16/19 Hydrocodone/Acetaminophen ([place] 10-325 Tablet) 1 Each Tablet, 1 TAB PO BID PRN for PAIN LEVEL 7-10, TAB 05/16/19 Insulin Glargine,Hum.rec.anlog (Basaglar Kwikpen U-100) 100 Unit/1 Ml Insuln.pen, 100 UNIT SC QHS, EA 05/16/19 Discontinued Scripts Levofloxacin* (Levaquin*) 500 Mg Tablet, 500 MG PO DAILY for 5 Days, TAB Prov:ALCIRA CORDON MD 03/26/19 Gabapentin* (Gabapentin*) 300 Mg Capsule, 300 MG PO TID for 14 Days, CAP Prov:ALCIRA CORDON MD 03/26/19 Aspirin (Aspir-Sabrina) 325 Mg Tablet.dr, 325 MG PO DAILY for 10 Days Prov:ALCIRA CORDON MD 03/26/19 [Insulin Glargine] 100 UNITS/ML SOLN No Conflict Check, 30 UNITS SC DAILY@1999 for 30 Days, 5 Refills take home dose insulin Prov:ALCIRA CORDON MD 03/26/19 Metformin Hcl* (Metformin Hcl*) 1,000 Mg Tablet, 1000 MG PO WITH BREAKFAST DINNE for 30 Days, #60 TAB 5 Refills Prov:SAKINA MONROY MD 06/06/18 Medications Current Medications Morphine Sulfate (morphine) 2 mg Q2H PRN IV SEVERE PAIN LEVEL 7-10; Start 05/16/19 at 17:30 Acetaminophen/ Hydrocodone Bitart ([place] (10/325)) 1 tab Q4H PRN PO MODERATE PAIN LEVEL 4-6; Start 05/16/19 at 18:00 Acetaminophen/ Hydrocodone Bitart ([place] (10/325)) 2 tab Q4H PRN PO MODERATE PAIN LEVEL 4-6 Last administered on 05/18/19at 01:05; Admin Dose 2 TAB; Start 05/16/19 at 18:00 Ondansetron HCl (Zofran Inj) 4 mg Q6H PRN IV NAUSEA AND/OR VOMITING; Start 05/16/19 at 18:30 Insulin Aspart (Novolog Insulin Pen) NOVOLOG *MILD* ALGORITHM WITH MEALS BEDTIME SC Last administered on 05/17/19at 17:40; Admin Dose 4 UNIT; Start 05/16/19 at 21:00 Miscellaneous Information 1 ea NOTE XX ; Start 05/16/19 at 19:00 Glucose (Glutose) 15 gm Q15M PRN PO DECREASED GLUCOSE; Start 05/16/19 at 19:00 Glucose (Glutose) 22.5 gm Q15M PRN PO DECREASED GLUCOSE; Start 05/16/19 at 19:00 Dextrose (D50w Syringe) 25 ml Q15M PRN IV DECREASED GLUCOSE; Start 05/16/19 at 19:00 Dextrose (D50w Syringe) 50 ml Q15M PRN IV DECREASED GLUCOSE; Start 05/16/19 at 19:00 Glucagon (Glucagen) 1 mg Q15M PRN IM DECREASED GLUCOSE; Start 05/16/19 at 19:00 Glucose (Glutose) 15 gm Q15M PRN BUCCAL DECREASED GLUCOSE; Start 05/16/19 at 19:00 Ferrous Sulfate (Ferrous Sulfate (Ec)) 325 mg BID PO Last administered on 05/18/19at 08:55; Admin Dose 325 MG; Start 05/17/19 at 21:00 Diagnostic Test (Pha) (Accu-Chek) 1 ea 02 XX ; Start 05/18/19 at 02:00 Insulin Glargine (Lantus) 19 units DAILY@2000 SC Last administered on 05/17/19at 20:35; Admin Dose 19 UNITS; Start 05/17/19 at 20:00 Insulin Aspart (Novolog Insulin Pen) 6 unit WITH MEALS SC Last administered on 05/18/19at 08:56; Admin Dose 6 UNIT; Start 05/17/19 at 17:55 Assessment/Plan Hospital Course (Demo Recall) Assessment and plan: 48-year-old male with a past medical history possible diabetes, right knee replacement who was brought in for right knee arthroscopic surgery because of swelling occurring prior to admission. #Status post right knee arthroscopic surgery: Postop day # 2. -Continue medical management per primary orthopedic surgery team including follow-up culture results, pain control medications, fluids, antibiotics -Tylenol PRN pain and fevers, follow-up final culture results -Given patient's homelessness, will also obtain social work consult if okay with primary orthopedic surgery team #Questionable diabetes: A1c is elevated in the 10 range, sugars improved in the last 24 hours. -Monitor, continue dosage of Lantus, aspart with meals, continue sliding scale We will continue to follow along with you ANNEL GARBER May 18, 2019 14:03
[2019-05-18] MEDS: INSULIN GLARGINE [LANTus] (100 UNITS/ML) SYG SC SCH (20:00)
[2019-05-19] MEDS: ACCU-CHEK XX SCH (02:00)
[2019-05-19 03:51] VITALS: BP 122/74; PULSE 82; RESP 20
[2019-05-19] MEDS ORDERED: VANCOMYCIN 1 GM (PMX) 250 ML IVPB SCH (07:00)
[2019-05-19] MEDS ORDERED: VANCOMYCIN IV PER PHARMACY XX SCH (07:30)
[2019-05-19 07:31] VITALS: BP 159/80; PULSE 82; RESP 17
[2019-05-19] MEDS: INSULIN ASPART [NOVOLOG] 3 ML PEN SC SCH ×7 (07:55→20:15)
[2019-05-19] MEDS: FERROUS SULFATE (EC) 325 MG TAB PO SCH ×2 (08:01→20:14)
[2019-05-19 11:34] VITALS: BP 134/78; PULSE 84; RESP 18
--- NOTE | 2019-05-19 11:51 | PN ---
Date/Time of Note Date/Time of Note DATE: 05/19/19 TIME: 11:51 Assessment/Plan VTE Prophylaxis Risk score (from Nsg)>0 risk: 4 SCD applied (from Nsg): Yes Pharmacological prophylaxis: LMWH Lines/Catheters IV Catheter Type (from Nrsg): Saline Lock Urinary Cath still in place: No Assessment/Plan Hospital Course S: wants to know the plan, no palpitations or dizziness O: Constitutional: alert, oriented Head: atraumatic, normocephalic Neck: non-tender, supple Respiratory: clear to auscultation Cardiovascular: regular rate and rhythm Gastrointestinal: S/ NT / ND / +BS Extremities: no edema, good radial pulses, R knee bandaged assessment and plan: This is a 48-year-old male who was brought in for an elective arthroscopy currently managed as follows: 1. 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 -During arthroplasty in March 2019, patient had prior hardware removed from tibial plateau. -It is unclear if cultures were sent at that time. -Cultures from arthroscopy May 16, 2019 currently growing Staphylococcus aureus -Continue empiric vancomycin and get ID consult 2. Diabetes mellitus -Hemoglobin A1c has improved to 7.9 from 9.9, patient currently exhibiting excellent in-house control on current regimen with basal and pre-meal insulin -Continue this regimen 3. DVT prophylaxis will be with Lovenox, will also continue supportive care and pain control -Downgrade patient to [facility] and await ID recommendations. -Continue monitoring, further interventions per clinical course Result Diagram: 05/19/19 0611 05/19/19 0611 Results 24hrs Laboratory Tests Test 05/18/19 12:27 05/18/19 16:19 05/18/19 17:38 05/18/19 19:50 Bedside Glucose 72 135 164 134 Test 05/18/19 20:47 05/19/19 06:11 05/19/19 07:34 05/19/19 07:59 Bedside Glucose 146 125 White Blood Count 5.0 Red Blood Count 3.33 L Hemoglobin 9.5 L Hematocrit 29.9 L Mean Corpuscular Volume 89.8 Mean Corpuscular 28.5 L Hemoglobin Mean Corpuscular 31.8 L Hemoglobin Concent Red Cell Distribution 12.9 Width Platelet Count 354 Mean Platelet Volume 9.3 Immature Granulocytes % 0.600 H Neutrophils % 54.1 Lymphocytes % 29.7 Monocytes % 11.0 Eosinophils % 3.4 Basophils % 1.2 Nucleated Red Blood 0.0 Cells % Immature Granulocytes # 0.030 Neutrophils # 2.7 Lymphocytes # 1.5 Monocytes # 0.6 Eosinophils # 0.2 Basophils # 0.1 Nucleated Red Blood 0.0 Cells # Sodium Level 141 Potassium Level 4.0 Chloride Level 108 Carbon Dioxide Level 28 Anion Gap 5 Blood Urea Nitrogen 28 H Creatinine 1.04 Est Glomerular Filtrat > 60 Rate mL/min Glucose Level 126 # Calcium Level 8.3 L Random Vancomycin Level 23.3 Exam/Review of Systems Exam Vitals Vital Signs Date Temp Pulse Resp B/P (MAP) Pulse Ox O2 O2 Flow FiO2 Time Delivery Rate 05/19/19 98.6 84 18 134/78 98 11:34 (96) 05/19/19 Room Air 03:51 Intake and Output 05/18/19 05/18/19 05/19/19 1515:00 23:00 07:00 IntakeIntake Total 350 ml OutputOutput Total 40 ml 200 ml BalanceBalance -40 ml 350 ml -200 ml Results Results 24hrs Laboratory Tests Test 05/18/19 12:27 05/18/19 16:19 05/18/19 17:38 05/18/19 19:50 Bedside Glucose 72 135 164 134 Test 05/18/19 20:47 05/19/19 06:11 05/19/19 07:34 05/19/19 07:59 Bedside Glucose 146 125 White Blood Count 5.0 Red Blood Count 3.33 L Hemoglobin 9.5 L Hematocrit 29.9 L Mean Corpuscular Volume 89.8 Mean Corpuscular 28.5 L Hemoglobin Mean Corpuscular 31.8 L Hemoglobin Concent Red Cell Distribution 12.9 Width Platelet Count 354 Mean Platelet Volume 9.3 Immature Granulocytes % 0.600 H Neutrophils % 54.1 Lymphocytes % 29.7 Monocytes % 11.0 Eosinophils % 3.4 Basophils % 1.2 Nucleated Red Blood 0.0 Cells % Immature Granulocytes # 0.030 Neutrophils # 2.7 Lymphocytes # 1.5 Monocytes # 0.6 Eosinophils # 0.2 Basophils # 0.1 Nucleated Red Blood 0.0 Cells # Sodium Level 141 Potassium Level 4.0 Chloride Level 108 Carbon Dioxide Level 28 Anion Gap 5 Blood Urea Nitrogen 28 H Creatinine 1.04 Est Glomerular Filtrat > 60 Rate mL/min Glucose Level 126 # Calcium Level 8.3 L Random Vancomycin Level 23.3 Medications Medication Current Medications Morphine Sulfate (morphine) 2 mg Q2H PRN IV SEVERE PAIN LEVEL 7-10; Start 05/16/19 at 17:30 Acetaminophen/ Hydrocodone Bitart ([place] (10/325)) 1 tab Q4H PRN PO MODERATE PAIN LEVEL 4-6; Start 05/16/19 at 18:00 Acetaminophen/ Hydrocodone Bitart ([place] (10/325)) 2 tab Q4H PRN PO MODERATE PAIN LEVEL 4-6 Last administered on 05/18/19at 01:05; Admin Dose 2 TAB; Start 05/16/19 at 18:00 Ondansetron HCl (Zofran Inj) 4 mg Q6H PRN IV NAUSEA AND/OR VOMITING; Start 05/16/19 at 18:30 Insulin Aspart (Novolog Insulin Pen) NOVOLOG *MILD* ALGORITHM WITH MEALS BEDTIME SC Last administered on 05/18/19at 17:58; Admin Dose 1 UNIT; Start at 21:00 Miscellaneous Information 1 ea NOTE XX ; Start 05/16/19 at 19:00 Glucose (Glutose) 15 gm Q15M PRN PO DECREASED GLUCOSE; Start 05/16/19 at 19:00 Glucose (Glutose) 22.5 gm Q15M PRN PO DECREASED GLUCOSE; Start 05/16/19 at 19:00 Dextrose (D50w Syringe) 25 ml Q15M PRN IV DECREASED GLUCOSE; Start 05/16/19 at 19:00 Dextrose (D50w Syringe) 50 ml Q15M PRN IV DECREASED GLUCOSE; Start 05/16/19 at 19:00 Glucagon (Glucagen) 1 mg Q15M PRN IM DECREASED GLUCOSE; Start 05/16/19 at 19:00 Glucose (Glutose) 15 gm Q15M PRN BUCCAL DECREASED GLUCOSE; Start 05/16/19 at 19:00 Ferrous Sulfate (Ferrous Sulfate (Ec)) 325 mg BID PO Last administered on 05/19/19at 08:01; Admin Dose 325 MG; Start 05/17/19 at 21:00 Diagnostic Test (Pha) (Accu-Chek) 1 ea 02 XX ; Start 05/18/19 at 02:00 Insulin Glargine (Lantus) 19 units DAILY@2000 SC Last administered on 05/17/19at 20:35; Admin Dose 19 UNITS; Start 05/17/19 at 20:00 Insulin Aspart (Novolog Insulin Pen) 6 unit WITH MEALS SC Last administered on 05/19/19at 08:06; Admin Dose 6 UNIT; Start 05/17/19 at 17:55 Vancomycin HCl (Vanco Iv Per Pharmacy) PER PHARMACY DOSING NOTE XX ; Start 05/19/19 at 07:30 Vancomycin HCl 250 ml @ 125 mls/hr Q24H IVPB ; Start 05/19/19 at 13:00 MIGUEL MAN May 19, 2019 11:51
[2019-05-19] MEDS: VANCOMYCIN 1 GM 250 ML IVPB SCH (12:31)
--- NOTE | 2019-05-19 13:20 | QN ---
Documentation Comment ID Consult was received, we will be in to see the patient. Thank you. TAYE BAZZI NP May 19, 2019 13:20
[2019-05-19 15:10] VITALS: BP 164/86; PULSE 93; RESP 17
[2019-05-19 19:10] VITALS: BP 156/88; PULSE 92; RESP 18
[2019-05-19] MEDS: PATIENT'S OWN MEDICATION XX SCH (20:15)
[2019-05-19] MEDS: INSULIN GLARGINE [LANTus] (100 UNITS/ML) SYG SC SCH (20:49)
[2019-05-19 23:23] VITALS: BP 148/81; PULSE 84; RESP 19
[2019-05-20] MEDS: ACCU-CHEK XX SCH (01:41)
[2019-05-20 03:28] VITALS: BP 132/74; PULSE 80; RESP 20
[2019-05-20] MEDS ORDERED: MAGNESIUM SULFATE 2 GM/50 ML 50 ML IVPB ONE (03:30)
[2019-05-20 07:15] VITALS: BP 124/75; PULSE 80; RESP 17
[2019-05-20] MEDS: INSULIN ASPART [NOVOLOG] 3 ML PEN SC SCH ×7 (07:55→20:29)
[2019-05-20] MEDS: PATIENT'S OWN MEDICATION XX SCH ×2 (09:00→20:29)
--- NOTE | 2019-05-20 09:17 | RADRPT ---
Echocardiogram Report Patient Name: Donovan MARTINEZtient ID: [id number] : 1970 (48y 9m)Study Date: 05/19/2019 1:51:50 PM Gender: MAccession #: [id number] Tech: Kevin Mendez [facility] Location: [address] Ref.Physician: MIGUEL MAN Height(Cm): BSA: Weight(Kg): Quality: AdequateOrder Physician: MIGUEL MAN Account #: Procedures: Echocardiographic Report: Transthoracic echocardiogram with complete 2D, M-Mode, and doppler examination. Indications: Multiple PVC's and bigeminy. Measurements: 2D/M Mode Doppler Measurement Value Normal Range Measurement Value Normal Range LVIDd 2D 5.0 [ 4.2 - 5.8 ] cm AV Peak Pranav 1.4 [ 100.0 - 170.0 ] cm/sec LVIDs 2D 3.4 [ 2.5 - 4.0 ] cm AV Peak PG 8.0 [ 2.0 - 9.0 ] mmHg LVPWd 2D 0.9 [ 0.6 - 1.0 ] cm LVOT Peak Pranav 0.9 [ 70.0 - 110.0 ] cm/sec IVSd 2D 1.1 [ 0.6 - 1.0 ] cm LVOT Peak PG 3.0 [ 2.0 - 6.0 ] mmHg AoR Diam 2D 3.0 [ 2.6 - 3.4 ] cm MV E Peak Pranav 0.8 [ 60.0 - 130.0 ] cm/sec EDV 2D 118.0 [ 62.0 - 150.0 ] ml MV A Peak Pranav 1.1 [ 100.0 - 120.0 ] cm/sec ESV 2D 48.5 [ 21.0 - 61.0 ] ml MV E/A 0.8 [ 0.8 - 1.5 ] ratio EF 2D 58.9 [ 52.0 - 72.0 ] percent MV Decel Time 127 [ 104 - 258 ] msec LA Dimen 2D 2.8 [ 3.0 - 4.0 ] cm Lat E` Pranav 0.1 [ 10.0 - 15.0 ] cm/sec Lateral E/E` 8.2 [ 1.0 - 2.0 ] ratio Med E` Pranav 0.1 cm/sec MV E/A 0.8 [ 0.8 - 1.5 ] ratio RA Pressure 10.0 mmHg Findings: Left Ventricle: Lower limits of normal systolic function. Normal left ventricular cavity size. Mild asymmetric septal hypertrophy. Paradoxical septal motion consistent with IVCD or bundle branch block. Ejection fraction is visually estimated at 50-55 %. Tissue Doppler/Mitral Doppler indices are consistent with impaired relaxation (Stage I diastolic dysfunction). Right Ventricle: Normal right ventricular size. Normal right ventricular systolic function. Left Atrium: The left atrium is normal in size. Right Atrium: The right atrium is normal in size. Mitral Valve: Mild mitral leaflet calcification. Mild mitral annular calcification. Trace mitral regurgitation. Aortic Valve: No significant aortic stenosis or insufficiency. Aortic cusps appear mildly calcified. Tricuspid Valve: Normal appearance of the tricuspid valve. Unable to obtain RVSP due to minimal presence of tricuspid regurgitation. Pericardium: Trivial to small pericardial effusion. Aorta: Normal aortic root. IVC: Normal size with poor respiratory collapse consistent with elevated right atrial pressure. Conclusions: Lower limits of normal systolic function. Normal left ventricular cavity size. Mild asymmetric septal hypertrophy. Paradoxical septal motion consistent with IVCD or bundle branch block. Ejection fraction is visually estimated at 50-55 %. Tissue Doppler/Mitral Doppler indices are consistent with impaired relaxation (Stage I diastolic dysfunction). Mild mitral leaflet calcification. Mild mitral annular calcification. Trace mitral regurgitation. No significant aortic stenosis or insufficiency. Aortic cusps appear mildly calcified. Normal appearance of the tricuspid valve. Unable to obtain RVSP due to minimal presence of tricuspid regurgitation. Electronically Signed By: Jason Pedersen 2019-05-20 09:16:48 PDT
[2019-05-20] MEDS: FERROUS SULFATE (EC) 325 MG TAB PO SCH ×2 (09:41→20:29)
[2019-05-20] MEDS: ENOXAPARIN 40 MG/0.4 ML SYG SC SCH (10:37)
[2019-05-20 11:08] VITALS: BP 159/84; PULSE 81; RESP 18
[2019-05-20] MEDS: VANCOMYCIN 1 GM 250 ML IVPB SCH (13:21)
--- NOTE | 2019-05-20 13:23 | PQ ---
Date/Time of Note Date/Time of Note DATE: 05/20/19 TIME: 13:08 Physician Query Dear RAISSA DIAZ 05/20/2019 12:49 PM Based on the documentation in the medical record, this patient has undergone Wound Care and/or Debridement of a wound. The following is also documented in the medical record: 48 y/o M underwent a R knee arthroscopy with irrigation and debridement and culture on 05/16/2019 In response to this query: Based on your medical judgment, can you further clarify the precise type, margins, instruments, region, site and depth of wound debridement utilized in this visit? Select all that apply: Type: Excisional: * [ ] Excision (cutting away or off without replacement) Non-excisional: * [ ] Extraction (pulling or stripping by force) Other: * [ ] Destruction (physical eradication by direct use of energy/force/destructive agent) * [ ] Irrigation (Continuous streaming of a solution over an open wound) * [ ] Other: Size of Debridement/Margins: x _x Instruments: [ ] Scalpel [ ] Scissors [ ] Curette [ ] Forceps [ ] Laser [ ] Other: Region: [ ] Left [ ] Right [ ] Bilateral [ ] Upper [ ] Lower [ ] Anterior [ ] Posterior Site: [ ] Scalp [ ] Face [ ] Neck [ ] Chest [ ] Back [ ] Abdomen [ ] Buttock [ ] Genitalia [ ] Arm [ ] Leg [ ] Foot [ ] Hand [ ] Perineum [ ] Pelvic region [ ] Breast [ ] Toenail [ ] Fingernail [ ] Other: Depth: (deepest layer of debridement) [ ] Skin [ ] Fascia [ ] Muscle [ ] Subcutaneous tissue [ ] Bone [ ] Other: In responding to this request, please exercise your independent professional judgment. The fact that a question is asked does not imply that any particular answer is desired or expected. Thank you! If you have any questions, please contact Aneudy Baig at ANEUDY BAIG May 20, 2019 13:22
[2019-05-20 15:05] VITALS: BP 156/91; PULSE 82; RESP 17
--- NOTE | 2019-05-20 17:46 | CONS ---
Assessment/Plan Assessment/Plan Hospital Course (Demo Recall) Patient seen and examined full note to follow. cont. vanco ortho eval consider picc if bcxs negative ordered bcxs Consultation Date/Type/Reason Admit Date/Time May 16, 2019 at 15:01 Initial Consult Date Date/Time of Note DATE: 05/20/19 TIME: 17:45 Exam/Review of Systems Exam Vitals Vital Signs Date Temp Pulse Resp B/P (MAP) Pulse Ox O2 O2 Flow FiO2 Time Delivery Rate 05/20/19 96.7 82 17 156/91 100 15:05 (112) 05/20/19 Room Air 03:28 Intake and Output 05/19/19 05/19/19 05/20/19 1515:00 23:00 07:00 IntakeIntake Total 600 ml 250 ml 450 ml BalanceBalance 600 ml 250 ml 450 ml Results Result Diagram: 05/20/19 0554 05/20/19 0554 Results 24hrs Laboratory Tests Test 05/19/19 20:11 05/20/19 02:05 05/20/19 05:54 05/20/19 08:08 Bedside Glucose 161 114 Sodium Level 138 141 Potassium Level 3.9 4.3 Chloride Level 106 108 Carbon Dioxide Level 28 27 Anion Gap 4 L 6 Blood Urea Nitrogen 21 H 21 H Creatinine 1.08 1.06 Est Glomerular Filtrat > 60 > 60 Rate mL/min Glucose Level 123 113 Calcium Level 8.3 L 8.2 L Magnesium Level 1.8 2.2 Thyroid Stimulating 0.423 L 0.391 L Hormone (TSH) White Blood Count 5.1 Red Blood Count 3.20 L Hemoglobin 9.0 L Hematocrit 28.7 L Mean Corpuscular Volume 89.7 Mean Corpuscular 28.1 L Hemoglobin Mean Corpuscular 31.4 L Hemoglobin Concent Red Cell Distribution 12.5 Width Platelet Count 345 Mean Platelet Volume 9.2 Immature Granulocytes % 1.000 H Neutrophils % 61.0 Lymphocytes % 25.2 Monocytes % 9.8 Eosinophils % 2.2 Basophils % 0.8 Nucleated Red Blood 0.0 Cells % Immature Granulocytes # 0.050 H Neutrophils # 3.1 Lymphocytes # 1.3 Monocytes # 0.5 Eosinophils # 0.1 Basophils # 0.0 Nucleated Red Blood 0.0 Cells # Phosphorus Level 3.2 Total Bilirubin 0.3 Direct Bilirubin 0.00 Indirect Bilirubin 0.3 Aspartate Amino 12 L Transf (AST/SGOT) Alanine 19 Aminotransferase (ALT/SG PT) Alkaline Phosphatase 93 Total Protein 5.5 L Albumin 2.5 L Test 05/20/19 11:28 05/20/19 17:20 Bedside Glucose 170 212 Medications Medication Current Medications Morphine Sulfate (morphine) 2 mg Q2H PRN IV SEVERE PAIN LEVEL 7-10; Start 05/16/19 at 17:30 Acetaminophen/ Hydrocodone Bitart ([place] (10/325)) 1 tab Q4H PRN PO MODERATE PAIN LEVEL 4-6; Start 05/16/19 at 18:00 Acetaminophen/ Hydrocodone Bitart ([place] (10/325)) 2 tab Q4H PRN PO MODERATE PAIN LEVEL 4-6 Last administered on 05/18/19at 01:05; Admin Dose 2 TAB; Start 05/16/19 at 18:00 Ondansetron HCl (Zofran Inj) 4 mg Q6H PRN IV NAUSEA AND/OR VOMITING; Start 05/16/19 at 18:30 Insulin Aspart (Novolog Insulin Pen) NOVOLOG *MILD* ALGORITHM WITH MEALS BEDTIME SC Last administered on 05/20/19at 17:26; Admin Dose 2 UNIT; Start 05/16/19 at 21:00 Miscellaneous Information 1 ea NOTE XX ; Start 05/16/19 at 19:00 Glucose (Glutose) 15 gm Q15M PRN PO DECREASED GLUCOSE; Start 05/16/19 at 19:00 Glucose (Glutose) 22.5 gm Q15M PRN PO DECREASED GLUCOSE; Start 05/16/19 at 19:00 Dextrose (D50w Syringe) 25 ml Q15M PRN IV DECREASED GLUCOSE; Start 05/16/19 at 19:00 Dextrose (D50w Syringe) 50 ml Q15M PRN IV DECREASED GLUCOSE; Start 05/16/19 at 19:00 Glucagon (Glucagen) 1 mg Q15M PRN IM DECREASED GLUCOSE; Start 05/16/19 at 19:00 Glucose (Glutose) 15 gm Q15M PRN BUCCAL DECREASED GLUCOSE; Start 05/16/19 at 19:00 Ferrous Sulfate (Ferrous Sulfate (Ec)) 325 mg BID PO Last administered on 05/20/19at 09:41; Admin Dose 325 MG; Start 05/17/19 at 21:00 Diagnostic Test (Pha) (Accu-Chek) 1 ea 02 XX ; Start 05/18/19 at 02:00 Insulin Glargine (Lantus) 19 units DAILY@2000 SC Last administered on 05/19/19at 20:49; Admin Dose 19 UNITS; Start 05/17/19 at 20:00 Insulin Aspart (Novolog Insulin Pen) 6 unit WITH MEALS SC Last administered on 05/20/19at 17:26; Admin Dose 6 UNIT; Start 05/17/19 at 17:55 Vancomycin HCl (Vanco Iv Per Pharmacy) PER PHARMACY DOSING NOTE XX ; Start 05/19/19 at 07:30 Vancomycin HCl 250 ml @ 125 mls/hr Q24H IVPB Last administered on 05/20/19at 13:21; Admin Dose 125 MLS/HR; Start 05/19/19 at 13:00 Enoxaparin Sodium (Lovenox) 40 mg DAILY SC Last administered on 05/20/19at 10:37; Admin Dose 40 MG; Start 05/20/19 at 09:00 Patient Own Medication 1 ea BID XX ; Start 05/19/19 at 21:00 Miscellaneous Information Patients own medicat... BID@10,16 XX ; Start 05/20/19 at 10:00 JEFFREY WESTBROOK MD May 20, 2019 17:46
[2019-05-20 19:19] VITALS: BP 123/72; PULSE 83; RESP 19
[2019-05-20] MEDS: INSULIN GLARGINE [LANTus] (100 UNITS/ML) SYG SC SCH (21:11)
[2019-05-20] MEDS: CEFAZOLIN 1 GM/50 ML (PMX) 50 ML IVPB SCH (21:51)
[2019-05-20 23:47] VITALS: BP 144/84; PULSE 85; RESP 20
[2019-05-21] MEDS: ACCU-CHEK XX SCH (01:14)
[2019-05-21 04:31] VITALS: BP 141/76; PULSE 75; RESP 19
[2019-05-21] MEDS: CEFAZOLIN 1 GM/50 ML (PMX) 50 ML IVPB SCH ×3 (05:48→21:12)
[2019-05-21 07:42] VITALS: BP 118/65; PULSE 81; RESP 19
[2019-05-21] MEDS: INSULIN ASPART [NOVOLOG] 3 ML PEN SC SCH ×7 (07:55→21:00)
[2019-05-21] MEDS: PATIENT'S OWN MEDICATION XX SCH ×2 (09:00→21:00)
[2019-05-21] MEDS: FERROUS SULFATE (EC) 325 MG TAB PO SCH ×2 (09:28→21:12)
[2019-05-21] MEDS: ENOXAPARIN 40 MG/0.4 ML SYG SC SCH (09:37)
[2019-05-21 11:17] VITALS: BP 156/86; PULSE 81; RESP 19
--- NOTE | 2019-05-21 11:41 | PN ---
Date/Time of Note Date/Time of Note DATE: 05/21/19 TIME: 11:38 Assessment/Plan VTE Prophylaxis Risk score (from Ns)>0 risk: 4 SCD applied (from Nsg): Yes Pharmacological prophylaxis: LMWH Lines/Catheters IV Catheter Type (from Nrsg): Saline Lock Urinary Cath still in place: No Assessment/Plan Hospital Course S: wants to know the plan, no palpitations or dizziness, still with some PVCs on tele O: Constitutional: alert, oriented Head: atraumatic, normocephalic Neck: non-tender, supple Respiratory: clear to auscultation Cardiovascular: regular rate and rhythm Gastrointestinal: S/ NT / ND / +BS Extremities: no edema, good radial pulses, R knee bandaged assessment and plan: This is a 48-year-old male who was brought in for an elective arthroscopy currently managed as follows: 1. 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 -During arthroplasty in March 2019, patient had prior hardware removed from tibial plateau. -It is unclear if cultures were sent at that time. -Cultures from arthroscopy May 16, 2019 currently growing Staphylococcus aureus -Continue empiric vancomycin and appreciate ID review and recommendations -Call was placed to Dr. Sifuentes's office, per report he is out of town and will not be back until next week Sunday. I left an urgent message for him to call me back to come up with a definitive plan of care. -If blood cultures are negative, the patient will likely be discharged on IV antibiotics, he can follow-up outpatient with orthopedic surgery for continued and definitive management re: Possible hardware removal 2. Diabetes mellitus -Hemoglobin A1c has improved to 7.9 from 9.9, patient currently exhibiting excellent in-house control on current regimen with basal and pre-meal insulin -Continue this regimen 3. HTN and some PVCs on tele -ensure electrolyte optimization begin BB -echo reviewed without significant abnormalities DVT prophylaxis will be with Lovenox, will also continue supportive care and pain control -f/u blood cultures, if negtive place PICC line for home IV abx -Continue monitoring, further interventions per clinical course Result Diagram: 05/21/19 0540 05/21/19 0540 Results 24hrs Laboratory Tests Test 05/20/19 17:20 05/20/19 20:27 05/21/19 05:40 05/21/19 07:52 Bedside Glucose 212 89 89 White Blood Count 5.7 Red Blood Count 3.23 L Hemoglobin 9.1 L Hematocrit 28.3 L Mean Corpuscular Volume 87.6 Mean Corpuscular 28.2 L Hemoglobin Mean Corpuscular 32.2 Hemoglobin Concent Red Cell Distribution 12.7 Width Platelet Count 338 Mean Platelet Volume 9.4 Immature Granulocytes % 1.200 H Neutrophils % 52.6 Lymphocytes % 31.8 Monocytes % 11.2 H Eosinophils % 2.1 Basophils % 1.1 Nucleated Red Blood 0.0 Cells % Immature Granulocytes # 0.070 H Neutrophils # 3.0 Lymphocytes # 1.8 Monocytes # 0.6 Eosinophils # 0.1 Basophils # 0.1 Nucleated Red Blood 0.0 Cells # Sodium Level 138 Potassium Level 3.9 Chloride Level 104 Carbon Dioxide Level 30 Anion Gap 4 L Blood Urea Nitrogen 20 Creatinine 1.13 Est Glomerular Filtrat > 60 Rate mL/min Glucose Level 99 Calcium Level 8.3 L Exam/Review of Systems Exam Vitals Vital Signs Date Temp Pulse Resp B/P (MAP) Pulse Ox O2 O2 Flow FiO2 Time Delivery Rate 05/21/19 98.2 81 19 156/86 98 11:17 (109) 05/21/19 Room Air 04:31 Intake and Output 05/20/19 05/20/19 05/21/19 1515:00 23:00 07:00 IntakeIntake Total 500 ml 550 ml 550 ml BalanceBalance 500 ml 550 ml 550 ml Results Results 24hrs Laboratory Tests Test 05/20/19 17:20 05/20/19 20:27 05/21/19 05:40 05/21/19 07:52 Bedside Glucose 212 89 89 White Blood Count 5.7 Red Blood Count 3.23 L Hemoglobin 9.1 L Hematocrit 28.3 L Mean Corpuscular Volume 87.6 Mean Corpuscular 28.2 L Hemoglobin Mean Corpuscular 32.2 Hemoglobin Concent Red Cell Distribution 12.7 Width Platelet Count 338 Mean Platelet Volume 9.4 Immature Granulocytes % 1.200 H Neutrophils % 52.6 Lymphocytes % 31.8 Monocytes % 11.2 H Eosinophils % 2.1 Basophils % 1.1 Nucleated Red Blood 0.0 Cells % Immature Granulocytes # 0.070 H Neutrophils # 3.0 Lymphocytes # 1.8 Monocytes # 0.6 Eosinophils # 0.1 Basophils # 0.1 Nucleated Red Blood 0.0 Cells # Sodium Level 138 Potassium Level 3.9 Chloride Level 104 Carbon Dioxide Level 30 Anion Gap 4 L Blood Urea Nitrogen 20 Creatinine 1.13 Est Glomerular Filtrat > 60 Rate mL/min Glucose Level 99 Calcium Level 8.3 L Medications Medication Current Medications Morphine Sulfate (morphine) 2 mg Q2H PRN IV SEVERE PAIN LEVEL 7-10; Start 05/16/19 at 17:30 Acetaminophen/ Hydrocodone Bitart (Spencer (10/325)) 1 tab Q4H PRN PO MODERATE PAIN LEVEL 4-6; Start 05/16/19 at 18:00 Acetaminophen/ Hydrocodone Bitart (Spencer (10/325)) 2 tab Q4H PRN PO MODERATE PAIN LEVEL 4-6 Last administered on 05/18/19at 01:05; Admin Dose 2 TAB; Start 05/16/19 at 18:00 Ondansetron HCl (Zofran Inj) 4 mg Q6H PRN IV NAUSEA AND/OR VOMITING; Start 05/16/19 at 18:30 Insulin Aspart (Novolog Insulin Pen) NOVOLOG *MILD* ALGORITHM WITH MEALS BEDTIME SC Last administered on 05/20/19at 17:26; Admin Dose 2 UNIT; Start 05/16/19 at 21:00 Miscellaneous Information 1 ea NOTE XX ; Start 05/16/19 at 19:00 Glucose (Glutose) 15 gm Q15M PRN PO DECREASED GLUCOSE; Start 05/16/19 at 19:00 Glucose (Glutose) 22.5 gm Q15M PRN PO DECREASED GLUCOSE; Start 05/16/19 at 19:00 Dextrose (D50w Syringe) 25 ml Q15M PRN IV DECREASED GLUCOSE; Start 05/16/19 at 19:00 Dextrose (D50w Syringe) 50 ml Q15M PRN IV DECREASED GLUCOSE; Start 05/16/19 at 19:00 Glucagon (Glucagen) 1 mg Q15M PRN IM DECREASED GLUCOSE; Start 05/16/19 at 19:00 Glucose (Glutose) 15 gm Q15M PRN BUCCAL DECREASED GLUCOSE; Start 05/16/19 at 19:00 Ferrous Sulfate (Ferrous Sulfate (Ec)) 325 mg BID PO Last administered on 05/21/19at 09:28; Admin Dose 325 MG; Start 05/17/19 at 21:00 Diagnostic Test (Pha) (Accu-Chek) 1 ea 02 XX ; Start 05/18/19 at 02:00 Insulin Glargine (Lantus) 19 units DAILY@2000 SC Last administered on 05/20/19at 21:11; Admin Dose 19 UNITS; Start 05/17/19 at 20:00 Insulin Aspart (Novolog Insulin Pen) 6 unit WITH MEALS SC Last administered on 05/21/19at 09:38; Admin Dose 6 UNIT; Start 05/17/19 at 17:55 Enoxaparin Sodium (Lovenox) 40 mg DAILY SC Last administered on 05/21/19at 09:37; Admin Dose 40 MG; Start 05/20/19 at 09:00 Patient Own Medication 1 ea BID XX ; Start 05/19/19 at 21:00 Miscellaneous Information Patients own medicat... BID@10,16 XX ; Start 05/20/19 at 10:00 Cefazolin Sodium 50 ml @ 100 mls/hr Q8 IVPB Last administered on 05/21/19at 05:48; Admin Dose 100 MLS/HR; Start 05/20/19 at 22:00 MIGUEL MAN May 21, 2019 11:41
--- NOTE | 2019-05-21 12:38 | CONS ---
Assessment/Plan Assessment/Plan Hospital Course (Demo Recall) - Septic R knee - R knee arthroscopy 05/16/19, s/p I&D 05/16/19 - preliminary cultures growing S. Aureus - DM - HgbA1c 7.9% - Severe OA R knee, s/p R knee replacement 03/2019 medial plateau fracture surgery, ORIF, and retained hardware with hardware removal of L medial plateau Recommendations: - Continue cefazolin for now (05/20/19 - ) will adjust if necessary according to final cultures - F/u blood culture (in process), final wound cultures (prelim staph aureus) - If blodd cultures negative then picc placement is ok. Plan was d/w patient, pcp at bedside, and with Dr. Rodriguez. Total time spent was 66 min including therapeutic time provided. Consultation Date/Type/Reason Admit Date/Time May 16, 2019 at 15:01 Initial Consult Date 05/20/19 Type of Consult ID Date/Time of Note DATE: 05/21/19 TIME: 12:27 24 HR Interval Summary Free Text/Dictation The patient had multiple questions that I answered via translation by a staff nurse. He also expressed worry that his knee will not improve or that he will have a worse infection after he goes home. Therapeutic time was provided. There is discharge planning. Preliminary right knee cultures are growing staph aureus. Detailed Summary Eyes: no complaints ENT: no complaints Respiratory: no complaints Cardiovascular: no complaints Gastrointestinal: no complaints Genitourinary: no complaints Musculoskeletal: restricted range of motion (right knee - pt's asking if he will get PT when he goes home.), swelling Skin: other (right knee surgical site) Neurologic: no complaints Endocrine: no complaints Lymphatic: no complaints Psychological: no complaints, anxiety Exam/Review of Systems Exam Vitals Vital Signs Date Temp Pulse Resp B/P (MAP) Pulse Ox O2 O2 Flow FiO2 Time Delivery Rate 05/21/19 98.2 81 19 156/86 98 11:17 (109) 05/21/19 Room Air 04:31 Allergies Coded Allergies No Known Allergy (Unverified05/16/19) Intake and Output 05/20/19 05/20/19 05/21/19 1515:00 23:00 07:00 IntakeIntake Total 500 ml 550 ml 550 ml BalanceBalance 500 ml 550 ml 550 ml Constitutional: alert, oriented, other (thin, sitting up in bed in NAD) Psych: nl mood/affect, anxiety Head: normocephalic, atraumatic Eyes: nl conjunctiva, nl lids, nl sclera ENMT: nl external ears & nose, nl nasal mucosa & septum, mucosa pink and moist (no thrush noted) Neck: supple, non-tender Respiratory: clear to auscultation, normal air movement Cardiovascular: regular rate and rhythm, nl pulses Gastrointestinal: soft, non-tender, bowel sounds (normoactive) Musculoskeletal: other (R knee surgical site is wrapped with c/d/i surgical dressing, there is no redness on the exposed skin around the dressing. swelling, ttp around the site) Extremities: normal pulses, other (piv site is c/d/i ) Neurological: nl mental status, nl speech, nl strength Skin: nl turgor, rash or lesions Results Result Diagram: 05/21/19 0540 05/21/19 0540 Results 24hrs Laboratory Tests Test 05/20/19 17:20 05/20/19 20:27 05/21/19 05:40 05/21/19 07:52 Bedside Glucose 212 89 89 White Blood Count 5.7 Red Blood Count 3.23 L Hemoglobin 9.1 L Hematocrit 28.3 L Mean Corpuscular Volume 87.6 Mean Corpuscular 28.2 L Hemoglobin Mean Corpuscular 32.2 Hemoglobin Concent Red Cell Distribution 12.7 Width Platelet Count 338 Mean Platelet Volume 9.4 Immature Granulocytes % 1.200 H Neutrophils % 52.6 Lymphocytes % 31.8 Monocytes % 11.2 H Eosinophils % 2.1 Basophils % 1.1 Nucleated Red Blood 0.0 Cells % Immature Granulocytes # 0.070 H Neutrophils # 3.0 Lymphocytes # 1.8 Monocytes # 0.6 Eosinophils # 0.1 Basophils # 0.1 Nucleated Red Blood 0.0 Cells # Sodium Level 138 Potassium Level 3.9 Chloride Level 104 Carbon Dioxide Level 30 Anion Gap 4 L Blood Urea Nitrogen 20 Creatinine 1.13 Est Glomerular Filtrat > 60 Rate mL/min Glucose Level 99 Calcium Level 8.3 L Test 05/21/19 11:41 Bedside Glucose 148 Imaging Imaging Echo 05/19/19 Conclusions: Lower limits of normal systolic function. Normal left ventricular cavity size. Mild asymmetric septal hypertrophy. Paradoxical septal motion consistent with IVCD or bundle branch block. Ejection fraction is visually estimated at 50-55 %. Tissue Doppler/Mitral Doppler indices are consistent with impaired relaxation (Stage I diastolic dysfunction). Mild mitral leaflet calcification. Mild mitral annular calcification. Trace mitral regurgitation. No significant aortic stenosis or insufficiency. Aortic cusps appear mildly calcified. Normal appearance of the tricuspid valve. Unable to obtain RVSP due to minimal presence of tricuspid regurgitation. Medications Medication Current Medications Morphine Sulfate (morphine) 2 mg Q2H PRN IV SEVERE PAIN LEVEL 7-10; Start 05/16/19 at 17:30 Acetaminophen/ Hydrocodone Bitart (Slater (10/325)) 1 tab Q4H PRN PO MODERATE PAIN LEVEL 4-6; Start 05/16/19 at 18:00 Acetaminophen/ Hydrocodone Bitart (Slater (10/325)) 2 tab Q4H PRN PO MODERATE PAIN LEVEL 4-6 Last administered on 05/18/19at 01:05; Admin Dose 2 TAB; Start 05/16/19 at 18:00 Ondansetron HCl (Zofran Inj) 4 mg Q6H PRN IV NAUSEA AND/OR VOMITING; Start 05/16/19 at 18:30 Insulin Aspart (Novolog Insulin Pen) NOVOLOG *MILD* ALGORITHM WITH MEALS BEDTIME SC Last administered on 05/21/19at 11:47; Admin Dose 1 UNIT; Start 05/16/19 at 21:00 Miscellaneous Information 1 ea NOTE XX ; Start 05/16/19 at 19:00 Glucose (Glutose) 15 gm Q15M PRN PO DECREASED GLUCOSE; Start 05/16/19 at 19:00 Glucose (Glutose) 22.5 gm Q15M PRN PO DECREASED GLUCOSE; Start 05/16/19 at 19:00 Dextrose (D50w Syringe) 25 ml Q15M PRN IV DECREASED GLUCOSE; Start 05/16/19 at 19:00 Dextrose (D50w Syringe) 50 ml Q15M PRN IV DECREASED GLUCOSE; Start 05/16/19 at 19:00 Glucagon (Glucagen) 1 mg Q15M PRN IM DECREASED GLUCOSE; Start 05/16/19 at 19:00 Glucose (Glutose) 15 gm Q15M PRN BUCCAL DECREASED GLUCOSE; Start 05/16/19 at 19:00 Ferrous Sulfate (Ferrous Sulfate (Ec)) 325 mg BID PO Last administered on 05/21/19at 09:28; Admin Dose 325 MG; Start 05/17/19 at 21:00 Diagnostic Test (Pha) (Accu-Chek) 1 ea 02 XX ; Start 05/18/19 at 02:00 Insulin Glargine (Lantus) 19 units DAILY@2000 SC Last administered on 05/20/19at 21:11; Admin Dose 19 UNITS; Start 05/17/19 at 20:00 Insulin Aspart (Novolog Insulin Pen) 6 unit WITH MEALS SC Last administered on 05/21/19at 11:47; Admin Dose 6 UNIT; Start 05/17/19 at 17:55 Enoxaparin Sodium (Lovenox) 40 mg DAILY SC Last administered on 05/21/19at 09:37; Admin Dose 40 MG; Start 05/20/19 at 09:00 Patient Own Medication 1 ea BID XX ; Start 05/19/19 at 21:00 Miscellaneous Information Patients own medicat... BID@10,16 XX ; Start 05/20/19 at 10:00 Cefazolin Sodium 50 ml @ 100 mls/hr Q8 IVPB Last administered on 05/21/19at 05:48; Admin Dose 100 MLS/HR; Start 05/20/19 at 22:00 Metoprolol Tartrate (Lopressor) 25 mg BID PO ; Start 05/21/19 at 12:00 TAYE BAZZI NP May 21, 2019 12:38
[2019-05-21] MEDS: METOPROLOL 25 MG TAB PO SCH ×2 (14:06→21:12)
[2019-05-21 15:16] VITALS: BP 152/85; PULSE 79; RESP 18
[2019-05-21 19:47] VITALS: BP 152/80; PULSE 81; RESP 20
[2019-05-21] MEDS: INSULIN GLARGINE [LANTus] (100 UNITS/ML) SYG SC SCH (21:27)
[2019-05-21 23:54] VITALS: BP 148/66; PULSE 80; RESP 20
[2019-05-22 00:10] VITALS: BP 103/63; PULSE 79; RESP 20
[2019-05-22] MEDS: ACCU-CHEK XX SCH (00:31)
[2019-05-22] MEDS: CEFAZOLIN 1 GM/50 ML (PMX) 50 ML IVPB SCH ×2 (05:25→14:41)
[2019-05-22] MEDS: FERROUS SULFATE (EC) 325 MG TAB PO SCH ×2 (08:33→19:56)
[2019-05-22] MEDS: METOPROLOL 25 MG TAB PO SCH ×2 (08:33→19:57)
[2019-05-22] MEDS: ENOXAPARIN 40 MG/0.4 ML SYG SC SCH (08:37)
[2019-05-22 08:39] VITALS: BP 128/70; PULSE 75; RESP 18
[2019-05-22] MEDS: PATIENT'S OWN MEDICATION XX SCH (09:00)
[2019-05-22] MEDS: INSULIN ASPART [NOVOLOG] 3 ML PEN SC SCH ×7 (09:00→19:56)
[2019-05-22] MEDS ORDERED: LIDOCAINE 1% (MPF) 5 ML VIAL SC ONE (10:30)
--- NOTE | 2019-05-22 14:10 | DS ---
Date/Time of Note Date/Time of Note DATE: 05/22/19 TIME: 14:05 Discharge Summary Admission/Discharge Info Admit Date/Time May 16, 2019 at 15:01 Discharge Date/Time Discharge Diagnosis This is a 48-year-old male who was brought in for an elective arthroscopy that was managed as follows: 1. 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 -During arthroplasty in March 2019, patient had prior hardware removed from tibial plateau. -Cultures from repeat arthroscopy May 16, 2019 currently growing Staphylococcus aureus (this admission) -patient is to be discharged on IV antibiotics, he can follow-up outpatient with orthopedic surgery for continued and definitive management re: Possible hardware removal 2. Diabetes mellitus -Hemoglobin A1c has improved to 7.9 from 9.9, patient currently exhibiting excellent in-house control on current regimen with basal and pre-meal insulin -Continue this regimen 3. HTN : controlled Consults Orthopedic surgeon: Dr. rodriguez ID: Jennifer Okeefe . Hospital Course 48-year-old male who was brought in for an elective arthroscopy. Of note is that patient had a right total knee arthroplasty in March 2019 and at that time he had hardware removal from his tibial plateau from a prior knee intervention. He had gone outpatient to the admitting orthopedic surgeon with complaints of swelling and pain and was admitted electively at this time for arthroscopy, knee washout, cultures. Cultures however are growing Staphylococcus aureus, seems to be MSSA. This is consistent with a septic joint with hardware in place. Patient will require intravenous antibiotics and possible hardware removal. I called the orthopedic surgeon's office apparently he is out of town, there is no uncovering for the surgeon. ID consult was obtained. At this time the pat ient to be discharged on IV antibiotics, he will follow-up outpatient with the surgeon as previous, and a decision can be made at the time for possible hardware removal if indicated. This has been complicated to the patient, questions have been answered. Patient is overall stable for discharge. . Home Meds Reported Medications Ferrous Sulfate* (Ferrous Sulfate*) 325 Mg Tabec, 325 MG PO BID, TAB 05/16/19 Hydrocodone/Acetaminophen (Constantine 10-325 Tablet) 1 Each Tablet, 1 TAB PO BID PRN for PAIN LEVEL 7-10, TAB 05/16/19 Insulin Glargine,Hum.rec.anlog (Basaglar Kwikpen U-100) 100 Unit/1 Ml Insuln.pen, 100 UNIT SC QHS, EA 05/16/19 Discontinued Scripts Levofloxacin* (Levaquin*) 500 Mg Tablet, 500 MG PO DAILY for 5 Days, TAB Prov:ALCIRA CORDON MD 03/26/19 Gabapentin* (Gabapentin*) 300 Mg Capsule, 300 MG PO TID for 14 Days, CAP Prov:ALCIRA CORDON MD 03/26/19 Aspirin (Aspir-Sabrina) 325 Mg Tablet.dr, 325 MG PO DAILY for 10 Days Prov:ALCIRA CORDON MD 03/26/19 [Insulin Glargine] 100 UNITS/ML SOLN No Conflict Check, 30 UNITS SC DAILY@1999 for 30 Days, 5 Refills take home dose insulin Prov:ALCIRA CORDON MD 03/26/19 Metformin Hcl* (Metformin Hcl*) 1,000 Mg Tablet, 1000 MG PO WITH BREAKFAST DINNE for 30 Days, #60 TAB 5 Refills Prov:SAKINA MONROY MD 06/06/18 Follow-up Plan You are being discharged with home health service to provide you with intravenous antibiotics and nursing to help you with wound care for the next 6 weeks. Call the orthopedic surgeon's office as soon as you leave to get an appointment to see him as soon as he returns. Review your medications with your nurse, ask any questions you have before you leave. Usted est siendo dado de yannick con el servicio de avis en el hogar para proporcionarle antibiticos por va intravenosa y enfermera para ayudarlo con el cuidado de las heridas jazmin las prximas 6 semanas. Llame a la oficina del cirujano ortopdico nelson pronto diony salga para obtener georges ramonita para verlo nelson pronto diony regrese. Revise tom medicamentos con segura enfermera, kurt cualquier pregunta que tenga antes de irse. Primary Care Provider Care Physician No Primary Time spent on discharge: > 30 minutes Pending Labs Laboratory Tests Test 05/21/19 17:49 05/21/19 21:11 05/22/19 04:32 05/22/19 08:31 Bedside 118 113 117 Glucose mg/dL (70-220) mg/dL (70-220) mg/dL (70-220) White Blood 5.8 Count 10^3/ul (4.8-1 0.8) Red Blood 3.23 Count 10^6/ul (4.70- 6.10) Hemoglobin 9.0 g/dl (14.0-18. 0) Hematocrit 28.6 % (42.0-52.0) Mean 88.5 Corpuscular fl (82.0-101.0 Volume ) Mean 27.9 Corpuscular pg (29.0-33.0) Hemoglobin Mean 31.5 Corpuscular g/dl (32.0-37. Hemoglobin Conc 0) ent Red Cell 12.5 Distribution % (11.5-14.5) Width Platelet Count 373 10^3/UL (140-4 15) Mean Platelet 9.3 Volume fl (7.4-10.4) Immature 0.900 Granulocytes % % (0.001-0.429 ) Neutrophils % 54.8 % (39.0-77.0) Lymphocytes % 29.5 % (15.0-51.0) Monocytes % 11.0 % (0.0-11.0) Eosinophils % 2.9 % (0.0-7.0) Basophils % 0.9 % (0.0-2.0) Nucleated Red 0.0 Blood Cells % /100WBC (0.0-0 .0) Immature 0.050 Granulocytes # 10^3/ul (0.0-0 .031) Neutrophils # 3.2 10^3/ul (1.6-7 .5) Lymphocytes # 1.7 10^3/ul (0.8-2 .9) Monocytes # 0.6 10^3/ul (0.3-0 .9) Eosinophils # 0.2 10^3/ul (0.0-0 .5) Basophils # 0.1 10^3/ul (0.0-0 .1) Nucleated Red 0.0 Blood Cells # 10^3/ul (0.0-0 .0) Sodium Level 139 mmol/L (135-14 4) Potassium 3.6 Level mmol/L (3.5-5. 1) Chloride Level 103 mmol/L (97-110 ) Carbon Dioxide 31 Level mmol/L (21-31) Anion Gap 5 (5-13) Blood Urea 14 Nitrogen mg/dl (7-20) Creatinine 1.07 mg/dl (0.61-1. 24) Est Glomerular > 60 Filtrat mL/min (>60) Rate mL/min Glucose Level 108 mg/dl (70-220) Calcium Level 8.2 mg/dl (8.4-10. 2) Phosphorus 3.2 Level mg/dl (2.5-4.9 ) Magnesium 1.8 Level mg/dl (1.7-2.5 ) Test 05/22/19 12:50 Bedside 140 Glucose mg/dL (70-220) MIGUEL MAN May 22, 2019 14:10
[2019-05-22 14:12] VITALS: BP 143/76; PULSE 74; RESP 18
--- NOTE | 2019-05-22 15:04 | CONS ---
Assessment/Plan Assessment/Plan Hospital Course (Demo Recall) - right knee TKA infection - R knee arthroscopy 05/16/19, s/p I&D 05/16/19 - cultures growing MSSA - DM - HgbA1c 7.9% - Severe OA R knee, s/p R knee replacement 03/2019 medial plateau fracture surge ry, ORIF, and retained hardware with hardware removal of L medial plateau Recommendations: - Continue cefazolin for now (05/20/19 - ) will adjust if necessary according to final cultures - F/u blood culture (in process), final wound cultures (prelim staph aureus) - If blodd cultures negative then picc placement is ok. Consultation Date/Type/Reason Admit Date/Time May 16, 2019 at 15:01 Date of Consultation: May 20, 2019 Type of Consult ID Reason for Consultation ABX RECS Requesting Provider: MIGUEL MAN Date/Time of Note DATE: 05/22/19 TIME: 14:57 Hx of Present Illness Late entry for 05.20.19. Mr. Diaz is a 48 yo male with a pmh of DM, R TKA in March, who presented in April due to swelling and erythema of knee. He underwent I&D and cxs have revealed MSSA. He is on Vancomycin Past Medical History Home Meds Reported Medications Ferrous Sulfate* (Ferrous Sulfate*) 325 Mg Tabec, 325 MG PO BID, TAB 05/16/19 Hydrocodone/Acetaminophen ([place] 10-325 Tablet) 1 Each Tablet, 1 TAB PO BID PRN for PAIN LEVEL 7-10, TAB 05/16/19 Insulin Glargine,Hum.rec.anlog (Adriana Potterpen U-100) 100 Unit/1 Ml Insuln.pen, 100 UNIT SC QHS, EA 05/16/19 Discontinued Scripts Levofloxacin* (Levaquin*) 500 Mg Tablet, 500 MG PO DAILY for 5 Days, TAB Prov:ALCIRA CORDON MD 03/26/19 Gabapentin* (Gabapentin*) 300 Mg Capsule, 300 MG PO TID for 14 Days, CAP Prov:ALCIRA CORDON MD 03/26/19 Aspirin (Aspir-Sabrina) 325 Mg Tablet.dr, 325 MG PO DAILY for 10 Days Prov:ALCIRA CORDON MD 03/26/19 [Insulin Glargine] 100 UNITS/ML SOLN No Conflict Check, 30 UNITS SC DAILY@1999 for 30 Days, 5 Refills take home dose insulin Prov:ALCIRA CORDON MD 03/26/19 Metformin Hcl* (Metformin Hcl*) 1,000 Mg Tablet, 1000 MG PO WITH BREAKFAST DINNE for 30 Days, #60 TAB 5 Refills Prov:SAKINA MONROY MD 06/06/18 Medications Current Medications Morphine Sulfate (morphine) 2 mg Q2H PRN IV SEVERE PAIN LEVEL 7-10; Start 05/16/19 at 17:30 Acetaminophen/ Hydrocodone Bitart ([place] (10/325)) 1 tab Q4H PRN PO MODERATE PAIN LEVEL 4-6; Start 05/16/19 at 18:00 Acetaminophen/ Hydrocodone Bitart ([place] (10/325)) 2 tab Q4H PRN PO MODERATE PAIN LEVEL 4-6 Last administered on 05/18/19at 01:05; Admin Dose 2 TAB; Start 05/16/19 at 18:00 Ondansetron HCl (Zofran Inj) 4 mg Q6H PRN IV NAUSEA AND/OR VOMITING; Start 05/16/19 at 18:30 Insulin Aspart (Novolog Insulin Pen) NOVOLOG *MILD* ALGORITHM WITH MEALS BEDTIME SC Last administered on 05/21/19at 11:47; Admin Dose 1 UNIT; Start 05/16/19 at 21:00 Miscellaneous Information 1 ea NOTE XX ; Start 05/16/19 at 19:00 Glucose (Glutose) 15 gm Q15M PRN PO DECREASED GLUCOSE; Start 05/16/19 at 19:00 Glucose (Glutose) 22.5 gm Q15M PRN PO DECREASED GLUCOSE; Start 05/16/19 at 19:00 Dextrose (D50w Syringe) 25 ml Q15M PRN IV DECREASED GLUCOSE; Start 05/16/19 at 19:00 Dextrose (D50w Syringe) 50 ml Q15M PRN IV DECREASED GLUCOSE; Start 05/16/19 at 19:00 Glucagon (Glucagen) 1 mg Q15M PRN IM DECREASED GLUCOSE; Start 05/16/19 at 19:00 Glucose (Glutose) 15 gm Q15M PRN BUCCAL DECREASED GLUCOSE; Start 05/16/19 at 19:00 Ferrous Sulfate (Ferrous Sulfate (Ec)) 325 mg BID PO Last administered on 9at 08:33; Admin Dose 325 MG; Start 05/17/19 at 21:00 Diagnostic Test (Pha) (Accu-Chek) 1 ea 02 XX ; Start 05/18/19 at 02:00 Insulin Glargine (Lantus) 19 units DAILY@2000 SC Last administered on 05/21/19 21:27; Admin Dose 19 UNITS; Start 05/17/19 at 20:00 Insulin Aspart (Novolog Insulin Pen) 6 unit WITH MEALS SC Last administered on 05/22/19 12:52; Admin Dose 6 UNIT; Start 05/17/19 at 17:55 Enoxaparin Sodium (Lovenox) 40 mg DAILY SC Last administered on 05/22/19 08:37; Admin Dose 40 MG; Start 05/20/19 at 09:00 Miscellaneous Information Patients own medicat... BID@10,16 XX ; Start 05/20/19 at 10:00 Cefazolin Sodium 50 ml @ 100 mls/hr Q8 IVPB Last administered on 05/22/19 14:41; Admin Dose 100 MLS/HR; Start 05/20/19 at 22:00 Metoprolol Tartrate (Lopressor) 25 mg BID PO Last administered on 05/22/19 08:33; Admin Dose 25 MG; Start 05/21/19 at 12:00 Allergies: Coded Allergies: No Known Allergy (Unverified , 05/16/19) Past Surgical History Past Surgical Hx: other (Right knee replacement March 2019) Social History Smoking Status: Never smoker Exam/Review of Systems Exam Vitals Vital Signs Date Temp Pulse Resp B/P (MAP) Pulse Ox O2 O2 Flow FiO2 Time Delivery Rate 05/22/19 98.4 74 18 143/76 99 Room Air 14:12 (98) Intake and Output 05/21/19 05/21/19 05/22/19 1515:00 23:00 07:00 IntakeIntake Total 430 ml 450 ml 50 ml BalanceBalance 430 ml 450 ml 50 ml Constitutional: alert, oriented, well developed Psych: no complaints, nl mood/affect Neck: supple, non-tender Respiratory: clear to auscultation, normal air movement Gastrointestinal: soft, nl liver, spleen, non-tender Extremities: other (swelling of right knee) Results Result Diagram: 05/22/1943105/22/19431 Results 24hrs Laboratory Tests Test 05/21/19 17:49 05/21/19 21:11 05/22/19 04:32 05/22/19 08:31 Bedside Glucose 118 113 117 White Blood Count 5.8 Red Blood Count 3.23 L Hemoglobin 9.0 L Hematocrit 28.6 L Mean Corpuscular Volume 88.5 Mean Corpuscular 27.9 L Hemoglobin Mean Corpuscular 31.5 L Hemoglobin Concent Red Cell Distribution 12.5 Width Platelet Count 373 Mean Platelet Volume 9.3 Immature Granulocytes % 0.900 H Neutrophils % 54.8 Lymphocytes % 29.5 Monocytes % 11.0 Eosinophils % 2.9 Basophils % 0.9 Nucleated Red Blood 0.0 Cells % Immature Granulocytes # 0.050 H Neutrophils # 3.2 Lymphocytes # 1.7 Monocytes # 0.6 Eosinophils # 0.2 Basophils # 0.1 Nucleated Red Blood 0.0 Cells # Sodium Level 139 Potassium Level 3.6 Chloride Level 103 Carbon Dioxide Level 31 Anion Gap 5 Blood Urea Nitrogen 14 Creatinine 1.07 Est Glomerular Filtrat > 60 Rate mL/min Glucose Level 108 Calcium Level 8.2 L Phosphorus Level 3.2 Magnesium Level 1.8 Test 05/22/19 12:50 Bedside Glucose 140 Medications Medication Current Medications Morphine Sulfate (morphine) 2 mg Q2H PRN IV SEVERE PAIN LEVEL 7-10; Start 05/16/19 at 17:30 Acetaminophen/ Hydrocodone Bitart ([place] (10/325)) 1 tab Q4H PRN PO MODERATE PAIN LEVEL 4-6; Start 05/16/19 at 18:00 Acetaminophen/ Hydrocodone Bitart ([place] (10/325)) 2 tab Q4H PRN PO MODERATE PAIN LEVEL 4-6 Last administered on 05/18/19at 01:05; Admin Dose 2 TAB; Start 05/16/19 at 18:00 Ondansetron HCl (Zofran Inj) 4 mg Q6H PRN IV NAUSEA AND/OR VOMITING; Start 05/16/19 at 18:30 Insulin Aspart (Novolog Insulin Pen) NOVOLOG *MILD* ALGORITHM WITH MEALS BEDTIME SC Last administered on 05/21/19at 11:47; Admin Dose 1 UNIT; Start 05/16/19 at 21:00 Miscellaneous Information 1 ea NOTE XX ; Start 05/16/19 at 19:00 Glucose (Glutose) 15 gm Q15M PRN PO DECREASED GLUCOSE; Start 05/16/19 at 19:00 Glucose (Glutose) 22.5 gm Q15M PRN PO DECREASED GLUCOSE; Start 05/16/19 at 19:00 Dextrose (D50w Syringe) 25 ml Q15M PRN IV DECREASED GLUCOSE; Start 05/16/19 at 19:00 Dextrose (D50w Syringe) 50 ml Q15M PRN IV DECREASED GLUCOSE; Start 05/16/19 at 19:00 Glucagon (Glucagen) 1 mg Q15M PRN IM DECREASED GLUCOSE; Start 05/16/19 at 19:00 Glucose (Glutose) 15 gm Q15M PRN BUCCAL DECREASED GLUCOSE; Start 05/16/19 at 19 :00 Ferrous Sulfate (Ferrous Sulfate (Ec)) 325 mg BID PO Last administered on 05/22/19 08:33; Admin Dose 325 MG; Start 05/17/19 at 21:00 Diagnostic Test (Pha) (Accu-Chek) 1 ea 02 XX ; Start 05/18/19 at 02:00 Insulin Glargine (Lantus) 19 units DAILY@2000 SC Last administered on 05/21/19 21:27; Admin Dose 19 UNITS; Start 05/17/19 at 20:00 Insulin Aspart (Novolog Insulin Pen) 6 unit WITH MEALS SC Last administered on 05/22/19 12:52; Admin Dose 6 UNIT; Start 05/17/19 at 17:55 Enoxaparin Sodium (Lovenox) 40 mg DAILY SC Last administered on 05/22/19 08:37; Admin Dose 40 MG; Start 05/20/19 at 09:00 Miscellaneous Information Patients own medicat... BID@10,16 XX ; Start 05/20/19 at 10:00 Cefazolin Sodium 50 ml @ 100 mls/hr Q8 IVPB Last administered on 05/22/19 14:41; Admin Dose 100 MLS/HR; Start 05/20/19 at 22:00 Metoprolol Tartrate (Lopressor) 25 mg BID PO Last administered on 05/22/19 08:33; Admin Dose 25 MG; Start 05/21/19 at 12:00 JEFFREY WESTBROOK MD May 22, 2019 15:04
--- NOTE | 2019-05-22 15:06 | CONS ---
Assessment/Plan Assessment/Plan Hospital Course (Demo Recall) - right knee TKA infection - R knee arthroscopy 05/16/19, s/p I&D 05/16/19 - cultures growing MSSA - DM - HgbA1c 7.9% - Severe OA R knee, s/p R knee replacement 03/2019 medial plateau fracture surge ry, ORIF, and retained hardware with hardware removal of L medial plateau Recommendations: - Continue cefazolin for now (05/20/19 - )x 6 weeks the suppressive po abx for at least 3 months - outpatient id f/u with contracted MD; I gave him our card and asked him to f/u in our office. he expressed understanding and willingness to do so. - If blodd cultures negative then picc placement is ok. Consultation Date/Type/Reason Admit Date/Time May 16, 2019 at 15:01 Initial Consult Date Type of Consult ID Requesting Provider: MIGUEL MAN Date/Time of Note DATE: 05/22/19 TIME: 15:05 Exam/Review of Systems Exam Vitals Vital Signs Date Temp Pulse Resp B/P (MAP) Pulse Ox O2 O2 Flow FiO2 Time Delivery Rate 05/22/19 98.4 74 18 143/76 99 Room Air 14:12 (98) Intake and Output 05/21/19 05/21/19 05/22/19 1515:00 23:00 07:00 IntakeIntake Total 430 ml 450 ml 50 ml BalanceBalance 430 ml 450 ml 50 ml Results Result Diagram: 05/22/19 0432 05/22/19 0432 Results 24hrs Laboratory Tests Test 05/21/19 17:49 05/21/19 21:11 05/22/19 04:32 05/22/19 08:31 Bedside Glucose 118 113 117 White Blood Count 5.8 Red Blood Count 3.23 L Hemoglobin 9.0 L Hematocrit 28.6 L Mean Corpuscular Volume 88.5 Mean Corpuscular 27.9 L Hemoglobin Mean Corpuscular 31.5 L Hemoglobin Concent Red Cell Distribution 12.5 Width Platelet Count 373 Mean Platelet Volume 9.3 Immature Granulocytes % 0.900 H Neutrophils % 54.8 Lymphocytes % 29.5 Monocytes % 11.0 Eosinophils % 2.9 Basophils % 0.9 Nucleated Red Blood 0.0 Cells % Immature Granulocytes # 0.050 H Neutrophils # 3.2 Lymphocytes # 1.7 Monocytes # 0.6 Eosinophils # 0.2 Basophils # 0.1 Nucleated Red Blood 0.0 Cells # Sodium Level 139 Potassium Level 3.6 Chloride Level 103 Carbon Dioxide Level 31 Anion Gap 5 Blood Urea Nitrogen 14 Creatinine 1.07 Est Glomerular Filtrat > 60 Rate mL/min Glucose Level 108 Calcium Level 8.2 L Phosphorus Level 3.2 Magnesium Level 1.8 Test 05/22/19 12:50 Bedside Glucose 140 Medications Medication Current Medications Morphine Sulfate (morphine) 2 mg Q2H PRN IV SEVERE PAIN LEVEL 7-10; Start 05/16/19 at 17:30 Acetaminophen/ Hydrocodone Bitart ([place] (10/325)) 1 tab Q4H PRN PO MODERATE PAIN LEVEL 4-6; Start 05/16/19 at 18:00 Acetaminophen/ Hydrocodone Bitart ([place] (10/325)) 2 tab Q4H PRN PO MODERATE PAIN LEVEL 4-6 Last administered on 05/18/19at 01:05; Admin Dose 2 TAB; Start 05/16/19 at 18:00 Ondansetron HCl (Zofran Inj) 4 mg Q6H PRN IV NAUSEA AND/OR VOMITING; Start 05/16/19 at 18:30 Insulin Aspart (Novolog Insulin Pen) NOVOLOG *MILD* ALGORITHM WITH MEALS BEDTIME SC Last administered on 05/21/19at 11:47; Admin Dose 1 UNIT; Start 05/16/19 at 21:00 Miscellaneous Information 1 ea NOTE XX ; Start 05/16/19 at 19:00 Glucose (Glutose) 15 gm Q15M PRN PO DECREASED GLUCOSE; Start 05/16/19 at 19:00 Glucose (Glutose) 22.5 gm Q15M PRN PO DECREASED GLUCOSE; Start 05/16/19 at 19:00 Dextrose (D50w Syringe) 25 ml Q15M PRN IV DECREASED GLUCOSE; Start 05/16/19 at 19:00 Dextrose (D50w Syringe) 50 ml Q15M PRN IV DECREASED GLUCOSE; Start 05/16/19 at 19:00 Glucagon (Glucagen) 1 mg Q15M PRN IM DECREASED GLUCOSE; Start 05/16/19 at 19:00 Glucose (Glutose) 15 gm Q15M PRN BUCCAL DECREASED GLUCOSE; Start 05/16/19 at 19:00 Ferrous Sulfate (Ferrous Sulfate (Ec)) 325 mg BID PO Last administered on 05/22/19 08:33; Admin Dose 325 MG; Start 05/17/19 at 21:00 Diagnostic Test (Pha) (Accu-Chek) 1 ea 02 XX ; Start 05/18/19 at 02:00 Insulin Glargine (Lantus) 19 units DAILY@2000 SC Last administered on 05/21/19 21:27; Admin Dose 19 UNITS; Start 05/17/19 at 20:00 Insulin Aspart (Novolog Insulin Pen) 6 unit WITH MEALS SC Last administered on 05/22/19 12:52; Admin Dose 6 UNIT; Start 05/17/19 at 17:55 Enoxaparin Sodium (Lovenox) 40 mg DAILY SC Last administered on 05/22/19 08:37; Admin Dose 40 MG; Start 05/20/19 at 09:00 Miscellaneous Information Patients own medicat... BID@10,16 XX ; Start 05/20/19 at 10:00 Cefazolin Sodium 50 ml @ 100 mls/hr Q8 IVPB Last administered on 05/22/19 14:41; Admin Dose 100 MLS/HR; Start 05/20/19 at 22:00 Metoprolol Tartrate (Lopressor) 25 mg BID PO Last administered on 05/22/19 08:33; Admin Dose 25 MG; Start 05/21/19 at 12:00 JEFFREY WESTBROOK MD May 22, 2019 15:06
[2019-05-22] MEDS ORDERED: CEFAZOLIN 1 GM/50 ML (PMX) 50 ML IVPB SCH (18:00)
[2019-05-22 19:47] VITALS: BP 130/79; PULSE 87; RESP 20
[2019-05-22] MEDS: INSULIN GLARGINE [LANTus] (100 UNITS/ML) SYG SC SCH (20:00)
== END 2019-05-22 20:15 | disposition home health service (06) | DRG 487 ==
LOC: SDS 10:07 → REC 15:01 → MS1 18:19 → TEL 05-18 21:04 → MS1 05-22 00:01
PROVIDERS: ADMIT Specialist; ATTEND Specialist
PROC: 0S9C0ZX Drainage of Right Knee Joint, Open Approach, Diagnostic (ICD-10-PCS; 2019-05-16)
PROC: 0SBC4ZZ Excision of Right Knee Joint, Percutaneous Endoscopic Approach (ICD-10-PCS; principal; 2019-05-16 14:00)
PROC: 02HV33Z Insertion of Infusion Device into Superior Vena Cava, Percutaneous Approach (ICD-10-PCS; 2019-05-22)
PROC: B548ZZA Ultrasonography of Superior Vena Cava, Guidance (ICD-10-PCS; 2019-05-22)
DX: M00.061 Staphylococcal arthritis, right knee (principal); E11.8 Type 2 diabetes mellitus with unspecified complications; M17.11 Unilateral primary osteoarthritis, right knee; I10 Essential (primary) hypertension; E78.5 Hyperlipidemia, unspecified; B95.61 Methicillin susceptible Staphylococcus aureus infection as the cause of diseases classified elsewhere
CPT/HCPCS: 36569; 71045; 76937; 80048; 80053; 80076; 80202; 80307; 82962; 83036; 83735; 84100; 84443; 85025; 85610; 85730; 87070; 93306; J0171; J0360; J0690; J1100; J1170; J1650; J1815; J2001; J2250; J2405; J2765; J3010; J3370; J3475

== ENCOUNTER 2019-05-29 06:08 | Inpatient (IN) | payer OTHER ==
[2019-05-29] VITALS (30 sets, daily range): BP systolic 73–143; BP diastolic 45–73; PULSE 76–123; RESP 14–22; Ht 167.6 cm; Wt 66.4 kg
[~2019-05-29] VITALS: Ht 167.6 cm; Wt 66.4 kg
[~2019-05-29 06:08] MED LIST changes: -ASPI325T32 PO; -EPINEPHrine 1 MG/ML 30 ML INJ IRR ONE; -GABA300C16 PO; -Insulin Glargine SC; -LEVO500T48 PO; -METF100010 PO
[2019-05-29] MEDS ORDERED: SOD CHLORIDE 0.9% 1,000 ML IV SCH (07:30)
[2019-05-29] MEDS ORDERED: PROPOFOL 20 ML ONE (07:39)
[2019-05-29] MEDS ORDERED: SUCCINYLCHOLINE CHLORIDE 100 MG/5 ML SYG IV ONE (07:39)
[2019-05-29] MEDS ORDERED: MIDAZOLAM 1 MG/ML 2 ML INJ ONE (07:39)
[2019-05-29] MEDS ORDERED: METOCLOPRAMIDE 10 MG INJ ONE (07:40)
[2019-05-29] MEDS ORDERED: ROPIVACAINE 0.2% 20 ML VIAL ONE (07:40)
[2019-05-29] MEDS ORDERED: ONDANSETRON 4 MG INJ ONE (07:40)
[2019-05-29] MEDS ORDERED: POLYMYXIN/BACITRACIN 1L IRRIG ONE (07:46)
[2019-05-29] MEDS ORDERED: VANCOMYCIN 1 GM INJ ONE ×2 (07:46→08:41)
[2019-05-29] MEDS ORDERED: FAMOTIDINE 20 MG INJ ONE (08:25)
[2019-05-29] MEDS ORDERED: FENTAnyl 50 MCG/ML VIAL ONE (08:26)
[2019-05-29] MEDS ORDERED: POLYMYXIN B 500000 UNIT INJ ONE (08:27)
[2019-05-29] MEDS ORDERED: PHENYLephrine (100 MCG/ML) 10ML SYG ONE ×2 (08:28→08:44)
[2019-05-29] MEDS ORDERED: BACITRACIN 50000 UNITS INJ ONE (08:37)
[2019-05-29] MEDS ORDERED: FENTAnyl 50 MCG/ML VIAL IV PRN ×2 (09:00)
[2019-05-29] MEDS ORDERED: MEPERIDINE 25 MG INJ IV PRN (09:00)
[2019-05-29] MEDS ORDERED: morphine 2 MG INJ IV PRN ×3 (09:00→10:00)
[2019-05-29] MEDS ORDERED: ONDANSETRON 4 MG INJ IV PRN ×2 (09:00→10:00)
[2019-05-29] MEDS ORDERED: OXYCODONE/ACETAMINOPHEN (5/325) TAB PO PRN ×2 (09:00)
[2019-05-29] MEDS ORDERED: ALBUTEROL 0.083% (NEB) 2.5 MG/3 ML AMP HHN PRN (09:00)
[2019-05-29] MEDS ORDERED: HYDROmorphONE 1 MG/5 ML IV SYRINGE IV PRN ×3 (09:00)
[2019-05-29] MEDS ORDERED: hydrALAzine 20 MG INJ IV PRN (09:00)
[2019-05-29] MEDS ORDERED: DIPHENHYDRAMINE 50 MG INJ IV PRN (09:00)
[2019-05-29] MEDS ORDERED: LABETALOL HCL 20MG INJ IV PRN (09:00)
[2019-05-29] MEDS: EPHEDrine 25 MG/5 ML SYG IV PRN ×2 (10:11→12:38)
[2019-05-29] MEDS: HYDROCODONE/APAP (5/325) TAB PO PRN (15:50)
[2019-05-29] MEDS ORDERED: GLUCOSE GEL 15 GRAM TUBE PO PRN ×2 (16:00)
[2019-05-29] MEDS ORDERED: DEXTROSE 50% 50 ML SYRINGE IV PRN ×2 (16:00)
[2019-05-29] MEDS ORDERED: GLUCOSE GEL 15 GRAM TUBE BUCCAL PRN (16:00)
[2019-05-29] MEDS ORDERED: GLUCAGON 1 MG INJ IM PRN (16:00)
[2019-05-29] MEDS: INSULIN ASPART [NOVOLOG] 3 ML PEN SC SCH ×2 (17:57→21:00)
[2019-05-29] MEDS: CEFAZOLIN 2 GM/50 ML (PMX) 50 ML IVPB SCH ×2 (17:57→21:04)
[2019-05-29] MEDS: ACCU-CHEK XX SCH (22:25)
[2019-05-30] VITALS: BP 97/53; PULSE 97; RESP 18
[2019-05-30 04:00] VITALS: BP 99/58; PULSE 98; RESP 20
[2019-05-30] MEDS: CEFAZOLIN 2 GM/50 ML (PMX) 50 ML IVPB SCH (05:19)
[2019-05-30] MEDS: INSULIN ASPART [NOVOLOG] 3 ML PEN SC SCH ×4 (07:50→21:00)
[2019-05-30 07:59] VITALS: BP 86/54; PULSE 94; RESP 18
[2019-05-30 20:30] VITALS: BP 157/79; PULSE 115; RESP 18
[2019-05-30] MEDS: ACCU-CHEK XX SCH (22:01)
[2019-05-31 02:15] VITALS: BP 144/73; PULSE 104; RESP 18
[2019-05-31 08:16] VITALS: BP 108/86; PULSE 56; RESP 18
[2019-05-31] MEDS: INSULIN ASPART [NOVOLOG] 3 ML PEN SC SCH ×4 (08:43→21:05)
[2019-05-31] MEDS: CEFTRIAXONE 2 GM/50 ML (PMX) 50 ML IVPB SCH (10:27)
[2019-05-31] MEDS: SOD FERRIC GLUC COMPLX 125 MG in SOD CHLORIDE 0.9% 100 ML IVPB SCH (13:42)
[2019-05-31 16:38] VITALS: BP 138/85; PULSE 89; RESP 18
[2019-05-31] MEDS: HYDROCODONE/APAP (5/325) TAB PO PRN (16:52)
[2019-05-31 20:30] VITALS: BP 118/69; PULSE 87; RESP 18
[2019-05-31] MEDS: FERROUS SULFATE (EC) 325 MG TAB PO SCH (21:00)
[2019-06-01] MEDS: ACCU-CHEK XX SCH ×2 (02:00→21:31)
[2019-06-01 02:38] VITALS: BP 123/75; PULSE 90; RESP 19
[2019-06-01 07:30] VITALS: BP 130/73; PULSE 87; RESP 20
[2019-06-01] MEDS: FERROUS SULFATE (EC) 325 MG TAB PO SCH ×2 (08:37→20:42)
[2019-06-01] MEDS: INSULIN ASPART [NOVOLOG] 3 ML PEN SC SCH ×5 (08:38→21:00)
[2019-06-01] MEDS: CEFTRIAXONE 2 GM/50 ML (PMX) 50 ML IVPB SCH (10:41)
[2019-06-01] MEDS: HYDROCODONE/APAP (5/325) TAB PO PRN ×2 (11:53→20:42)
[2019-06-01] MEDS: SOD FERRIC GLUC COMPLX 125 MG in SOD CHLORIDE 0.9% 100 ML IVPB SCH (12:57)
[2019-06-01 14:00] VITALS: BP 118/61; PULSE 81; RESP 20
[2019-06-01] MEDS ORDERED: CEFTRIAXONE IVPB SCH (17:30)
[2019-06-01] MEDS ORDERED: SOD CHLORIDE 0.9% IVPB SCH (17:30)
[2019-06-01 20:01] VITALS: BP 93/51; PULSE 93; RESP 18
[2019-06-01] MEDS: INSULIN GLARGINE [LANTus] (100 UNITS/ML) SYG SC SCH (21:30)
[2019-06-02 03:00] VITALS: BP 103/62; PULSE 86; RESP 18
[2019-06-02 07:21] VITALS: BP 95/51; PULSE 87; RESP 18
[2019-06-02] MEDS: INSULIN ASPART [NOVOLOG] 3 ML PEN SC SCH ×7 (07:50→20:40)
[2019-06-02] MEDS: FERROUS SULFATE (EC) 325 MG TAB PO SCH ×2 (08:22→20:39)
[2019-06-02] MEDS: SOD CHLORIDE 0.9% IVPB SCH (10:31)
[2019-06-02] MEDS: CEFTRIAXONE IVPB SCH (10:31)
[2019-06-02] MEDS: SOD FERRIC GLUC COMPLX 125 MG in SOD CHLORIDE 0.9% 100 ML IVPB SCH (12:39)
[2019-06-02 13:26] VITALS: BP 128/68; PULSE 96
[2019-06-02] MEDS: HYDROCODONE/APAP (5/325) TAB PO PRN ×2 (13:39→20:39)
[2019-06-02] MEDS: INSULIN GLARGINE [LANTus] (100 UNITS/ML) SYG SC SCH (20:43)
[2019-06-02] MEDS: ACCU-CHEK XX SCH (20:44)
[2019-06-02 20:50] VITALS: BP 104/63; PULSE 91; RESP 18
[2019-06-03 02:35] VITALS: BP 135/75; PULSE 89; RESP 18
[2019-06-03 07:56] VITALS: BP 121/64; PULSE 78; RESP 19
[2019-06-03] MEDS: FERROUS SULFATE (EC) 325 MG TAB PO SCH ×2 (08:51→20:34)
[2019-06-03] MEDS: INSULIN ASPART [NOVOLOG] 3 ML PEN SC SCH ×7 (08:56→20:40)
[2019-06-03] MEDS: SOD CHLORIDE 0.9% IVPB SCH (10:32)
[2019-06-03] MEDS: CEFTRIAXONE IVPB SCH (10:32)
[2019-06-03] MEDS: APIXABAN 5 MG TABLET PO SCH ×2 (13:12→20:34)
[2019-06-03] MEDS: SOD FERRIC GLUC COMPLX 125 MG in SOD CHLORIDE 0.9% 100 ML IVPB SCH (17:52)
[2019-06-03 17:56] VITALS: BP 112/64; PULSE 68; RESP 20
[2019-06-03] MEDS: HYDROCODONE/APAP (5/325) TAB PO PRN (18:02)
[2019-06-03 19:56] VITALS: BP 98/54; PULSE 86; RESP 18
[2019-06-03] MEDS ORDERED: ACETAMINOPHEN 325 MG TAB PO PRN (20:00)
[2019-06-03] MEDS: INSULIN GLARGINE [LANTus] (100 UNITS/ML) SYG SC SCH (20:40)
[2019-06-04] MEDS: ACCU-CHEK XX SCH (02:00)
[2019-06-04 02:11] VITALS: BP 119/57; PULSE 83; RESP 18
[2019-06-04] MEDS: INSULIN ASPART [NOVOLOG] 3 ML PEN SC SCH ×7 (07:50→19:46)
[2019-06-04] MEDS: FERROUS SULFATE (EC) 325 MG TAB PO SCH ×2 (08:44→19:47)
[2019-06-04] MEDS: APIXABAN 5 MG TABLET PO SCH ×2 (08:45→19:47)
[2019-06-04 09:16] VITALS: BP 113/65; PULSE 82; RESP 18
[2019-06-04] MEDS: CEFTRIAXONE IVPB SCH (10:19)
[2019-06-04] MEDS: SOD CHLORIDE 0.9% IVPB SCH (10:19)
[2019-06-04] MEDS: SOD FERRIC GLUC COMPLX 125 MG in SOD CHLORIDE 0.9% 100 ML IVPB SCH (12:57)
[2019-06-04] MEDS: HYDROCODONE/APAP (5/325) TAB PO PRN (19:47)
[2019-06-04] MEDS: INSULIN GLARGINE [LANTus] (100 UNITS/ML) SYG SC SCH (19:48)
[2019-06-10] MEDS ORDERED: APIXABAN 5 MG TABLET PO SCH (09:00)
== END 2019-06-04 20:15 | DRG 467 ==
LOC: SDS 06:08 → REC 09:30 → MS1 12:43
PROVIDERS: ADMIT Specialist; ATTEND Specialist
PROC: 0SRC0EZ Replacement of Right Knee Joint with Articulating Spacer, Open Approach (ICD-10-PCS; 2019-05-29)
PROC: 0SPC0JZ Removal of Synthetic Substitute from Right Knee Joint, Open Approach (ICD-10-PCS; principal; 2019-05-29 07:30)
PROC: 30233N1 Transfusion of Nonautologous Red Blood Cells into Peripheral Vein, Percutaneous Approach (ICD-10-PCS; 2019-05-30)
DX: T84.53XA Infection and inflammatory reaction due to internal right knee prosthesis, initial encounter (principal); D62 Acute posthemorrhagic anemia; I82.491 Acute embolism and thrombosis of other specified deep vein of right lower extremity; I82.441 Acute embolism and thrombosis of right tibial vein; E78.5 Hyperlipidemia, unspecified; I10 Essential (primary) hypertension; E10.9 Type 1 diabetes mellitus without complications; E61.1 Iron deficiency; Y79.3 Surgical instruments, materials and orthopedic devices (including sutures) associated with adverse incidents; Y83.2 Surgical operation with anastomosis, bypass or graft as the cause of abnormal reaction of the patient, or of later complication, without mention of misadventure at the time of the procedure
CPT/HCPCS: 36430; 71045; 80048; 80053; 81001; 82270; 82962; 83036; 83540; 83735; 84100; 85014; 85018; 85025; 86850; 86900; 86901; 86920; 87070; 87102; 87116; 88300; 93971; 97110; 97116; 97162; 97530; J0690; J0696; J1815; J2250; J2370; J2405; J2765; J2795; J2916; J3010; J3370; P9016